=== PATIENT | male | born 1950 | race African-American/Black ===

== ENCOUNTER 2018-03-16 18:24 | Inpatient (IN) | payer OTHER ==
--- OUTSIDE RECORDS SUMMARY | 2018-03-16 18:26 | XMS REPORT | Clinical Summary ---
:1950 Author Organization [facility] Address [address] [place] [address] Care Team Providers Name Role Phone Asked, No Pcp Primary Care Provider Unavailable Allergies Active Allergy Reactions Severity Noted Date Comments Sulfamethoxazole-Trimethoprim 04/19/2017 Milk 04/19/2017 Shellfish Derived 04/19/2017 Crane 04/19/2017 Current Medications Prescription Sig. Disp. Refills Start Date End Date Status amLODIPine (NORVASC) 10 mg Take 10 mg by 1 01/13/2017 Active tablet mouth once daily. carvedilol (COREG) 12.5 MG Take 12.5 mg by 12 02/28/2017 Active tablet mouth 2 (two) times a day. finasteride (PROSCAR) 5 mg Take 5 mg by mouth 7 03/18/2017 Active tablet once daily. furosemide (LASIX) 40 mg Take 40 mg by 12 02/26/2017 Active tablet mouth once daily. lisinopril Take 30 mg by 0 03/10/2017 Active (PRINIVIL,ZESTRIL) 30 mg mouth once daily. tablet rosuvastatin (CRESTOR) 40 Take 40 mg by 3 01/30/2017 Active MG tablet mouth once daily. tamsulosin (FLOMAX) 0.4 mg Take 0.4 mg by 3 01/13/2017 Active capsule,extended release mouth once daily. 24hr Active Problems Problem Noted Date Essential hypertension 04/26/2017 History of CVA (cerebrovascular accident) 04/26/2017 S/P TAVR (transcatheter aortic valve replacement) 04/19/2017 Overview: with a 31-mm Medtronic CoreValve. Resolved Problems Problem Noted Date Resolved Date Aortic valve stenosis 04/19/2017 04/26/2017 Aortic valve disorder 04/19/2017 04/26/2017 Encounters Date Type Specialty Care Team Description 12/07/2017 Orders Only Cardiology Zahra Jimenez MA S/P TAVR (transcatheter aortic valve replacement) (Primary Dx); Aortic valve disorder 04/26/2017 Multidisciplinary Visit Cardiology Lior Gregg Aortic valve disorder (Primary Dx); MD Nargis S/P TAVR (transcatheter aortic valve replacement); Essential hypertension; History of CVA (cerebrovascular accident) 03/29/2017 Orders Only Cardiology Chika Wilson, Aortic valve disorder (Primary Dx); LORENZA S/P TAVR (transcatheter aortic valve replacement) after 03/15/2017 Family History Medical History Relation Name Comments Cancer Mother Hypertension Mother Relation Name Status Comments Father Mother Social History Tobacco Use Types Packs/Day Years Used Date Former Smoker 1 5 Comments: quit 40yrs ago Alcohol Use Drinks/Week oz/Week Comments No Sex Assigned at Date Recorded Not on file Last Filed Vital Signs Vital Sign Reading Time Taken Blood Pressure 179/59 04/26/2017 1:11 PM CDT Pulse 59 04/26/2017 1:11 PM CDT Temperature 36.3 C (97.4 F) 04/26/2017 1:11 PM CDT Respiratory Rate 16 04/26/2017 1:11 PM CDT Oxygen Saturation - - Inhaled Oxygen Concentration - - Weight 122 kg (270 lb) 04/26/2017 1:11 PM CDT Height 185.4 cm (6' 1") 04/26/2017 1:11 PM CDT Body Mass Index 35.62 04/26/2017 1:11 PM CDT Plan of Treatment Date Type Specialty Care Team Description 04/25/2018 Appointment Procedural Cardiology Lior Gregg MD [address] [facility] [address] [place] [address] [phone] 04/25/2018 Multidisciplinary Visit Cardiology Lior Gregg MD [address] [facility] [address] [place] [address] [id number] Health Maintenance Due Date Last Done Comments COLONOSCOPY 1999 SHINGRIX VACCINE (#1) 1999 ZOSTER VACCINE 2009 PNEUMOCOCCAL POLYSACCHARIDE VACCINE AGE 65 AND OVER 2014 PNEUMOCOCCAL-13 2014 INFLUENZA VACCINE 06/14/2018 Procedures Procedure Name Priority Date/Time Associated Comments Diagnosis ECHOCARDIOGRAM 2D Routine 04/26/2017 9:33 Aortic valve Results for this COMPLETE W MMODE AM CDT disorder procedure are in SPECTRAL COLOR DOPPLER S/P TAVR the results (41047) (transcatheter section. aortic valve replacement) after 03/15/2017 Results ECG 12 lead (04/26/2017 12:04 PM) Component Value Ref Range Ventricular rate 59 Atrial rate 59 MS interval 198 QRSD interval 122 QT interval 482 QTC interval 477 P axis 1 82 QRS axis 1 70 T wave axis -80 EKG impression Sinus bradycardia-Cannot rule out Inferior infarct , age undetermined-ST & T wave abnormality, consider lateral ischemia-Abnormal ECG-In automated comparison with ECG of 20-APR-2014 14:11,-Minimal criteria for Inferior infarct are now present-T wave inversion more evident in Inferior leads- Specimen Performing Laboratory [facility] [address] [place] [address] Echocardiogram complete w contrast and 3D if needed (04/26/2017 9:33 AM) Specimen Performing Laboratory [facility] [address] [place] [address] Narrative [facility] Echocardiography Report Pat.Name:NAGA CASTILLO Pat.ID:[id number] St.Date: 04/26/2017 Refer.MD:LIOR GREGG MD Exam Time: 9:05:00 AMStudy Type:Routine Echo Height:73inWeight: 270lb BSA: 2.45 m2 DOBAge:1950,66Y Sex: MALEBP:178/82 HR:64 bpm Sonogrphr: Cynthia Velez, RCS, RCCS, CCT Pat. Stat.:Outpatient[facility] TapeVol: [facility], Study Status:Final Echo Event ID:[id number] Order ID:[id number] Reason for Study:Valvular [id number]-jp-vcgt without evidence, no status change History / Clinical:Congestive Heart Failure, Diabetes, Hypertension, Valvular Heart Disease; Aortic Stenosis Procedures:2D Echo, Colorflow Doppler Race:-Georgian FINDINGS: LV: LV size is moderately enlarged. There is moderate eccentric LVhypertrophy. LV function is moderately depressed. EstimatedEF is 35-39%. RV: RV size is mildly enlarged. RV function is lower limits of normal. LA: LA volume is moderately to severely enlarged. RA: RA volume is mildly enlarged. AO: Aortic root diameter is normal. MADI: No pericardial effusion. AV: Transcatheter bioprosthetic aortic valve. Normal prosthetic valvevelocity and gradient.Unchanged compared to previous echoevaluation. MV: Moderate thickening of mitral leaflets. Mild mitral annular calcification.Mild mitral regurgitation. PV: No structural PV abnormalities noted. Mild pulmonic regurgitation. TV: No structural TV abnormalities noted. Forrest: LV relaxation is impaired. LV filling pressure is normal. Other:Insufficient TR jet to estimate PA systolic pressure. MEASUREMENTS: 2D Parasternal [place] LVOT 2.5 cmLVIDd6.3 cm Index2.6 cm/m IVSd 1.1 cmLVIDs5.3 cm Ao An2.5 cmLV%fs 15.5 % Ao Rtd 3.6 cmIndex 1.5 cm/m LVPWd0.9 cm LV Euzd907.4 g(122-174) LA Ds 3.9 cm LVM Fihrh838.5 g/m2RWT0.3 LA Sng Plane LA Area 29.7 cm2(8.8-23.4) LA Vol 108.5 ml Index44.3 ml/m LA LngAx 6.7 cm DOPPLER AV For Flow/DARY AV pkVel 225.8 cm/s (100-170) AV AC/ET 0.3 AV mnVel 146.2 cm/Quentin TVI 54.1 cm AV pkPG 20.4 mmHgAVpkAcRt 2696.1 cm/s2 AV Mean G 10.7 mmHgAV DeRt 610.6 cm/s2 AV AC128 msec (83-118) AV Area1.4 cm2(3-5) AV ET370 msec LVOT For Flow LVOT Area4.9 cm2 LVOT SV 77.4 ml LVOTpkVel 63.2 cm/sHR62.3 bpm LVOTpkPG 1.6 mmHgLVOT CO 4.8 l/min LVOTmnPG 1 mmHgLVOT CI2 l/m/m2 LVOT TVI15.8 cm MV E/A Ratio MV pkE67.1 cm/s (60-130) MV E/A 0.7 MV pkA92.2 cm/s WALL MOTION: RESTING WALL MOTION: Basal Anteroseptal, Basal Inferoseptal, Basal Inferior, Mid Anteroseptal, Mid Inferoseptal, Mid Inferior, Apical Inferior, Apical Lateral chinchilla are hypokinetic.Apical Septal, Apical chinchilla are mildly hypokinetic. Normal in all other chinchilla. Wall Index=1.5 Signed 04/27/2017 09:37 AM Brenna Chen M.D. Procedure Note Interface, Radiology Results In - 04/27/2017 9:37 AM CDT [facility] Echocardiography Report Pat.Name: NAGA CASTILLO Maite.ID: [id number] St.Date: 04/26/2017 Refer.MD: LIOR GREGG MD Exam Time: 9:05:00 AM Study Type:Routine Echo Height: 73in Weight: 270lb BSA: 2.45 m2 Age: 11 1950,66Y Sex: MALE BP: 178/82 HR: 64 bpm Sonogrphr: Cynthia Velez, RCS, RCCS, CCT Pat. Stat.:Outpatient Room: [address] Vol: [facility], Study Status:Final Echo Event ID:[id number] Order ID: [id number] Reason for Study:Valvular kiihynv-sd-zpua without evidence, no status change History / Clinical:Congestive Heart Failure, Diabetes, Hypertension, Valvular Heart Disease; Aortic Stenosis Procedures:2D Echo, Colorflow Doppler Race: -Georgian FINDINGS: LV: LV size is moderately enlarged. There is moderate eccentric LV hypertrophy. LV function is moderately depressed. Estimated EF is 35-39%. RV: RV size is mildly enlarged. RV function is lower limits of normal. LA: LA volume is moderately to severely enlarged. RA: RA volume is mildly enlarged. AO: Aortic root diameter is normal. MADI: No pericardial effusion. AV: Transcatheter bioprosthetic aortic valve. Normal prosthetic valve velocity and gradient.Unchanged compared to previous echo evaluation. MV: Moderate thickening of mitral leaflets. Mild mitral annular calcification. Mild mitral regurgitation. PV: No structural PV abnormalities noted. Mild pulmonic regurgitation. TV: No structural TV abnormalities noted. Forrest: LV relaxation is impaired. LV filling pressure is normal. Other: Insufficient TR jet to estimate PA systolic pressure. MEASUREMENTS: 2D Parasternal [place] LVOT 2.5 cm LVIDd 6.3 cm Index 2.6 cm/m IVSd 1.1 cm LVIDs 5.3 cm Ao An 2.5 cm LV%fs 15.5 % Ao Rtd 3.6 cm Index 1.5 cm/m LVPWd 0.9 cm LV Mass 356.4 g (122-174) LA Ds 3.9 cm LVM Index 145.5 g/m2 RWT 0.3 LA Sng Plane LA Area 29.7 cm2 (8.8-23.4) LA Vol 108.5 ml Index 44.3 ml/m LA LngAx 6.7 cm DOPPLER AV For Flow/DARY AV pkVel 225.8 cm/s (100-170) AV AC/ET 0.3 AV mnVel 146.2 cm/s AV TVI 54.1 cm AV pkPG 20.4 mmHg AVpkAcRt 2696.1 cm/s2 AV Mean G 10.7 mmHg AV DeRt 610.6 cm/s2 AV AC 128 msec (83-118) AV Area 1.4 cm2 (3-5) AV ET 370 msec LVOT For Flow LVOT Area 4.9 cm2 LVOT SV 77.4 ml LVOTpkVel 63.2 cm/s HR 62.3 bpm LVOTpkPG 1.6 mmHg LVOT CO 4.8 l/min LVOTmnPG 1 mmHg LVOT CI 2 l/m/m2 LVOT TVI 15.8 cm MV E/A Ratio MV pkE 67.1 cm/s (60-130) MV E/A 0.7 MV pkA 92.2 cm/s WALL MOTION: RESTING WALL MOTION: Basal Anteroseptal, Basal Inferoseptal, Basal Inferior, Mid Anteroseptal, Mid Inferoseptal, Mid Inferior, Apical Inferior, Apical Lateral chinchilla are hypokinetic. Apical Septal, Apical chinchilla are mildly hypokinetic. Normal in all other chinchilla. Wall Index=1.5 Signed 04/27/2017 09:37 AM Brenna hCen M.D. after 03/15/2017 Insurance Payer Benefit Plan / Group Subscriber ID Type Phone Address AETNA MEDICARE AETNA MEDICARE HMO/PPO [facility] xxxxxxxx O [phone] [facility] [address] [place] [phone]
[2018-03-16] MEDS ORDERED: NA CHLORIDE 0.9% 1,000 ML ONE (20:06)
--- NOTE | 2018-03-16 21:08 | ER ---
Nurse's Notes [facility] Name: Naga Castillo Age: 67 yrs Sex: Male : 1950 Arrival Date: 03/16/2018 Time: 18:27 Bed 7 Private MD: Diagnosis: Acute kidney failure Presentation: 03/16 18:29 Presenting complaint: Patient states: my blood today wasn't good; was advised to come hj here by Jake Suero, blood work done here; per lab look up- Na- 123; creatinine- 5.17; pt is asymptomatic;. Transition of care: patient was not received from another setting of care. Onset of symptoms was March 16, 2018. Initial Sepsis Screen: Does the patient meet any 2 criteria? No. Patient's initial sepsis screen is negative. Does the patient have a suspected source of infection? No. Patient's initial sepsis screen is negative. Care prior to arrival: None. 18:29 Method Of Arrival: Ambulatory 18:29 Acuity: RANDALL 3 hj Triage Assessment: 18:31 General: Appears in no apparent distress. uncomfortable, Behavior is calm, cooperative, hj appropriate for age. Pain: Denies pain. Historical: - Allergies: 18:31 Anesthesia; hj 18:31 Palisades; hj 18:31 Sulfa (Sulfonamide Antibiotics); hj - PMHx: 18:31 CVA; Diabetes - NIDDM; Hypertension; kidney disease; Myocardial infarction; hj - PSHx: 18:31 hip replacement; hj - Immunization history:: Adult Immunizations up to date. - Social history:: Smoking status: . Screenin:17 Abuse screen: Denies threats or abuse. Denies injuries from another. Nutritional mg2 screening: No deficits noted. Tuberculosis screening: No symptoms or risk factors identified. Fall Risk Ambulatory Aid- Crutches/Cane/Walker (15 pts). Assessment: 20:16 General: Appears in no apparent distress. comfortable, Behavior is calm, cooperative. mg2 Neuro: Level of Consciousness is awake, alert, obeys commands, Oriented to person, place, time. Cardiovascular: Capillary refill < 3 seconds Patient's skin is warm and dry. Respiratory: Airway is patent Respiratory effort is even, unlabored, Respiratory pattern is regular, symmetrical. GI: No signs and/or symptoms were reported involving the gastrointestinal system. : No signs and/or symptoms were reported regarding the genitourinary system. EENT: No signs and/or symptoms were reported regarding the EENT system. Derm: Skin is pink, warm \T\ dry. normal. Musculoskeletal: No signs and/or symptoms reported regarding the musculoskeletal system. 21:55 Reassessment: Patient and/or family updated on plan of care and expected duration. Pain ea level reassessed. Patient is alert, oriented x 3, equal unlabored respirations, skin warm/dry/pink. family at bedside. 22:22 Reassessment: 4th floor nurse called to give report but said she will call back because mg2 they have code blue ongoing. 23:08 Reassessment: Patient and/or family updated on plan of care and expected duration. Pain mg2 level reassessed. Patient is alert, oriented x 3, equal unlabored respirations, skin warm/dry/pink. report given to DEVORAH Ugalde. Vital Signs: 18:31 BP 184 / 69; Pulse 64; Resp 18; Temp 97.6(TE); Pulse Ox 100% on R/A; Weight 122.47 kg; hj Height 6 ft. 1 in. (185.42 cm); Pain 0/10; 20:00 BP 110 / 70; Pulse 80; Resp 18; Pulse Ox 98% on R/A; ea 21:00 BP 110 / 70; Pulse 83; Resp 18; Pulse Ox 97% on R/A; Pain 0/10; ea 22:56 BP 132 / 70; Pulse 79; Resp 18; Pulse Ox 98% on R/A; Pain 0/10; mg2 22:56 BP 155 / 70; Pulse 75; Resp 18; Pulse Ox 100% ; Pain 0/10; mg2 18:31 Body Mass Index 35.62 (122.47 kg, 185.42 cm) ED Course: 18:27 Patient arrived in ED. mr 18:31 Triage completed. hj 18:31 Arm band placed on right wrist. hj 19:25 Francisco Coleman RN is Primary Nurse. mg2 19:30 Memo Santos MD is Attending Physician. 20:16 Inserted saline lock: 20 gauge in right antecubital area, using aseptic technique. mg2 20:18 Patient has correct armband on for positive identification. Bed in low position. Call mg2 light in reach. Warm blanket given. 21:06 Maximus Perrin MD is Hospitalizing Provider. 22:15 No provider procedures requiring assistance completed. Patient admitted, IV remains in mg2 place. Administered Medications: 20:16 Drug: NS 0.9% 1000 ml Route: IV; Rate: 125 ml/hr; Site: right antecubital; mg2 22:23 Follow up: IV Status: Infusion continued upon transfer mg2 Outcome: 21:07 Decision to Hospitalize by Provider. 23:26 Admitted to Med/surg accompanied by tech, family with patient, via wheelchair, room ea 218, with chart, Report called to Receiving nurse. 23:26 Condition: stable 23:26 Instructed on the need for admit. 23:27 Patient left the ED. ea Signatures: Shantel Nichols mr James Zhang, RN RN Maria C Burrell RN RN Memo Juarez MD MD Francisco Coleman RN RN mg2 Corrections: (The following items were deleted from the chart) 18:34 18:31 Pulse 89bpm; Resp 18bpm; Pulse Ox 96%; Temp 97.6F Temporal; 122.47 kg; Height 6 hj ft. 1 in.; BMI: 35.6; Pain 0/10; hj 18:36 18:29 Presenting complaint: Patient states: my blood today wasn't good; was advised to come here by Jake Suero, blood work done here; hj 18:37 18:29 Presenting complaint: Patient states: my blood today wasn't good; was advised to come here by Jake Suero, blood work done here; per lab look up- Na- 123; creatinine- 5.17; hj
--- NOTE | 2018-03-16 21:08 | EDPHYS ---
Physician Documentation [facility] Name: Naga Castillo Age: 67 yrs Sex: Male : 1950 Arrival Date: 03/16/2018 Time: 18:27 Bed 7 Private MD: ED Physician Memo Santos HPI: 03/16 21:00 This 67 yrs old Black Male presents to ER via Ambulatory with complaints of Abnormal gs Lab Results. 21:00 Onset: The symptoms/episode began/occurred today. Associated signs and symptoms: gs Pertinent negatives: decreased urine output, dry skin, hair loss. Current symptoms: In the emergency department the patient's symptoms are unchanged from the initial presentation. The patient has experienced similar episodes in the past, several times. The patient has been recently seen by a physician: Dr. reyez. hx kidney disease told to come to ed for evaluation after abnormal blood test results. Historical: - Allergies: 18:31 Anesthesia; hj 18:31 Chandler; hj 18:31 Sulfa (Sulfonamide Antibiotics); hj - PMHx: 18:31 CVA; Diabetes - NIDDM; Hypertension; kidney disease; Myocardial infarction; hj - PSHx: 18:31 hip replacement; hj - Immunization history:: Adult Immunizations up to date. - Social history:: Smoking status: . ROS: 21:00 All other systems are negative. gs 21:00 All other systems are negative. Exam: 21:00 Head/Face: Normocephalic, atraumatic. Eyes: Pupils equal round and reactive to light, gs extra-ocular motions intact. Lids and lashes normal. Conjunctiva and sclera are non-icteric and not injected. Cornea within normal limits. Periorbital areas with no swelling, redness, or edema. ENT: Nares patent. No nasal discharge, no septal abnormalities noted. Tympanic membranes are normal and external auditory canals are clear. Oropharynx with no redness, swelling, or masses, exudates, or evidence of obstruction, uvula midline. Mucous membranes moist. Neck: Trachea midline, no thyromegaly or masses palpated, and no cervical lymphadenopathy. Supple, full range of motion without nuchal rigidity, or vertebral point tenderness. No Meningismus. Chest/axilla: Normal chest wall appearance and motion. Nontender with no deformity. No lesions are appreciated. Cardiovascular: Regular rate and rhythm with a normal S1 and S2. No gallops, murmurs, or rubs. Normal PMI, no JVD. No pulse deficits. Respiratory: Lungs have equal breath sounds bilaterally, clear to auscultation and percussion. No rales, rhonchi or wheezes noted. No increased work of breathing, no retractions or nasal flaring. Abdomen/GI: Soft, non-tender, with normal bowel sounds. No distension or tympany. No guarding or rebound. No evidence of tenderness throughout. Back: No spinal tenderness. No costovertebral tenderness. Full range of motion. Skin: Warm, dry with normal turgor. Normal color with no rashes, no lesions, and no evidence of cellulitis. MS/ Extremity: Pulses equal, no cyanosis. Neurovascular intact. Full, normal range of motion. Neuro: Awake and alert, GCS 15, oriented to person, place, time, and situation. Cranial nerves II-XII grossly intact. Motor strength 5/5 in all extremities. Sensory grossly intact. Cerebellar exam normal. Normal gait. 21:00 Constitutional: The patient appears alert, awake. 21:00 ECG was reviewed by the Attending Physician. Vital Signs: 18:31 BP 184 / 69; Pulse 64; Resp 18; Temp 97.6(TE); Pulse Ox 100% on R/A; Weight 122.47 kg; hj Height 6 ft. 1 in. (185.42 cm); Pain 0/10; 20:00 BP 110 / 70; Pulse 80; Resp 18; Pulse Ox 98% on R/A; ea 21:00 BP 110 / 70; Pulse 83; Resp 18; Pulse Ox 97% on R/A; Pain 0/10; ea 22:56 BP 132 / 70; Pulse 79; Resp 18; Pulse Ox 98% on R/A; Pain 0/10; mg2 22:56 BP 155 / 70; Pulse 75; Resp 18; Pulse Ox 100% ; Pain 0/10; mg2 18:31 Body Mass Index 35.62 (122.47 kg, 185.42 cm) MDM: 19:37 Patient medically screened. 21:00 Data reviewed: vital signs, nurses notes. Response to treatment: There is no appreciated change of the patient's symptoms at this time, and as a result, I will admit patient. Physician consultation: Siria Ackerman MD and will see patient in inpatient room, would like admission per Dr. Maximus Perrin MD. Admission orders: after a detailed discussion of the patient's condition and case, the admit orders are written by me. 03/16 19:47 Order name: EKG; Complete Time: 19:48 03/16 19:47 Order name: EKG - Nurse/Tech; Complete Time: 21:49 03/16 21:19 Order name: CONS Physician Consult EDNM 03/16 21:19 Order name: Carb Control (ADA) 1800 Fl[place]io EDNM EC:00 Rate is 68 beats/min. Rhythm is regular. MA interval is normal. QRS interval is gs prolonged. T waves are Inverted in leads I, aVL, V5, V6. Clinical impression: NSR w/ Non-specific ST/T Changes. Interpreted by me. Administered Medications: 20:16 Drug: NS 0.9% 1000 ml Route: IV; Rate: 125 ml/hr; Site: right antecubital; mg2 22:23 Follow up: IV Status: Infusion continued upon transfer mg2 Disposition: 03/16/18 21:07 Hospitalization ordered by Maximus Perrin for Inpatient Admission. Preliminary diagnosis is Acute kidney failure. - Bed requested for Telemetry/MedSurg (Inpatient). - Status is Inpatient Admission. ea - Condition is Stable. - Problem is an ongoing problem. - Symptoms are unchanged. UTI on Admission? No Signatures: Dispatcher [employer] [facility] [place] Beckham RN RN kl Joaquin, Henry, RN RN hj Antunez, Elena, RN RN ea Starr, Gregory, MD MD gs Gardose, Michele, RN RN mg2 Corrections: (The following items were deleted from the chart) 21:48 21:07 Hospitalization Ordered by Maximus Perrin MD for Inpatient Admission. Preliminary ginette diagnosis is Acute kidney failure. Bed requested for Telemetry/MedSurg (Inpatient). Status is Inpatient Admission. Condition is Stable. Problem is an ongoing problem. Symptoms are unchanged. UTI on Admission? No. gs 23:27 21:48 03/16/2018 21:07 Hospitalization Ordered by Maximus Perrin MD for Inpatient ea Admission. Preliminary diagnosis is Acute kidney failure. Bed requested for Telemetry/MedSurg (Inpatient). Status is Inpatient Admission. Condition is Stable. Problem is an ongoing problem. Symptoms are unchanged. UTI on Admission? No. kl
[2018-03-16] MEDS ORDERED: ACETAMINOPHEN 500 MG TAB PO PRN (21:14)
[2018-03-16] MEDS ORDERED: GLUCAGON 1 MG/VIAL IM PRN (21:17)
[2018-03-16] MEDS ORDERED: D50W 25 GM/50 ML SYRINGE IV PRN (21:17)
[2018-03-16] MEDS ORDERED: SODIUM BICARB 50 MEQ/50ML VIAL ONE (23:37)
[2018-03-16] MEDS ORDERED: D5W 1,000 ML IV ONE (23:38)
[2018-03-17] MEDS: D5W 1,000 ML with NA BICARB 8.4% 100 MEQ IV SCH ×6 (00:07→20:50)
[2018-03-17 02:24] VITALS: BMI 35.6
[2018-03-17 05:51] LABS: Potassium 5.5 mEq/L (3.6-5.0)
[2018-03-17 05:56] LABS: Albumin 3.2 g/dL (3.2-5.5); Phosphorus 5.7 mg/dL (2.5-4.3); Uric Acid 8.1 mg/dL (4.8-8.7)
[2018-03-17 06:01] LABS: CKMB Creatine Kinase MB 9.2 ng/ml (0.3-4.0)
[2018-03-17 06:38] LABS: Urine Appearance CLOUDY; Urine Bilirubin NEGATIVE (NEG); Urine Blood TRACE (NEG); Urine Color YELLOW; Urine Glucose 1+ (NEG); Urine Protein 3+ (NEG); Urine Specific Gravity 1.015 (1.005-1.030); Urine Urobilinogen 0.2 mg/dL (0.2-1.0); Urine pH 5.5 (5.0-7.0)
[2018-03-17 06:42] LABS: Urine Microscopic Reflex ORDER UMIC
--- NOTE | 2018-03-17 06:43 | EKG ---
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
[2018-03-17 07:13] LABS: Urine Bacteria >50 /HPF (NONE SEEN); Urine Culture Reflex Order REFLEXED
[2018-03-17] MEDS: INSULIN -REGULAR HUMAN 50 UNIT/0.5 ML ML SQ SCH ×4 (07:30→20:45)
--- NOTE | 2018-03-17 07:50 | RAD REPORT ---
EXAM DESCRIPTION: US - Renal Ultrasound-Complete - 03/16/2018 10:43 pm CLINICAL HISTORY: . Acute renal failure COMPARISON: March 2017 FINDINGS: The right kidney measures 11 centimeters with a mildly increased echotexture The left kidney measures 11 centimeters with a mildly increased echotexture. Hydronephrosis is not seen. IMPRESSION: Increased renal echotexture consistent with parenchymal disease
[2018-03-17] MEDS ORDERED: PNEUMOCOCCAL VACCINE 0.5 ML IMVAC ONE (08:00)
--- NOTE | 2018-03-17 08:25 | EKG ---
Test Date: 2018-03-16 Test Time: 20:51:46 Mixing Pan Tender: MEASUREMENT RESULTS: Intervals: Rate: 67 ID: [id number] QRSD: 112 QT: 440 QTc: 464 [place]: P: 67 ID: [id number] QRS: -15 T: 153 INTERPRETIVE STATEMENTS: Sinus rhythm with occasional premature ventricular complexes ST & T wave abnormality, consider inferolateral ischemia Prolonged QT Abnormal ECG Compared to ECG 03/16/2018 20:51:17 Ventricular premature complex(es) now present ST (T wave) deviation still present Possible ischemia still present Electronically Signed On 03-17-18 08:23:31 CDT by Finn Lewis
[2018-03-17] MEDS: CEFTRIAXONE/SWI 1gm 1 GM/10 ML SYR IV SCH (13:06)
[2018-03-17] MEDS ORDERED: CALCITROL 0.25 MCG CAP PO SCH (17:00)
[2018-03-17] MEDS: CARVEDILOL 25 MG TAB PO SCH (20:38)
[2018-03-17] MEDS: FERROUS SULFATE 325 MG TAB PO SCH (20:38)
--- NOTE | 2018-03-17 23:47 | HP ---
Date of Admission: 03/16/2018 History Of Present Illness: A 67-year-old male with history of multiple medical problems including trinity solorzano with chronic renal insufficiency has been following up with Nephrology for his renal insuffic iency which is chronic. However, chemistry panel ordered by Nephrology, his creatinine has showed th at it has worsened significantly to where his creatinine which usually runs between 2-3 have went up to 5.11 and he was advised to come to the emergency room to be admitted for acute renal failure. On top of chronic, the patient himself had no complaints, no shortness of breath, no chest pain. He den ied having been taking any other medications and he also denied taking any nonsteroidal anti-inflamma tory medicines and he voiced no other complaints. Review of Systems: Cardiovascular: No complaint. Genitourinary: No complaint. Skeletomuscular: No complaint. Gastrointestinal: No complaint. Pulmonary: No complaint. Neurological: No complaint. Past Medical History: Include as mentioned above: 1.Type 2 diabetes mellitus with chronic renal insufficiency. 2.Chronic disease status post myocardial infarction in the past. 3.History of CVA. 4.Hypertension. 5.Hyperlipidemia. 6.History of hip replacement surgery. Social History: No smoking, alcohol, or drug abuse history. Family History: Noncontributory. Medications: Include amlodipine 10 mg p.o. daily; calcitriol 0.25 mcg p.o. Tuesday, Tuesday, and ; calcium carbonate and Coreg 25 mg p.o. b.i.d.; vitamin D3; Procrit 4000 units subcutaneous; fredo elijah sulfate 65 mg p.o. b.i.d.; Proscar 5 mg p.o. daily; Lasix 40 mg p.o. daily; hydralazine 25 mg p. o. t.i.d.; NovoLog Pen 5 units b.i.d. subcutaneous; and Levemir 10 units subcutaneous b.i.d.; Prinivi l 20 mg p.o. daily; Crestor 40 mg p.o. daily; vitamin E supplement. Allergies: INCLUDING MILK, STRAWBERRY, SULFA AND SULFA DRUGS. Physical Examination: Vital Signs: Blood pressure 170/78, pulse 75, temperature 98. Heart: Regular rate and rhythm. Chest: Clear to auscultation. Abdomen: Soft, nontender. No perforation. Bowel sounds are normoactive. Extremities: No edema. No cyanosis. Peripheral pulses are felt. Neurological examination: Alert, oriented, nonfocal. Grossly intact. Imaging Data: EKG sinus rhythm with occasional premature ventricular complexes and ST-T wave abnorma lities and prolonged QT. Renal ultrasound showed parenchymal disease. Laboratory Data: Sodium 142, potassium 5.5, chloride 118, bicarb 17, BUN 84, creatinine 5.11, glucos e 307, calcium 7.9. Phosphorus 5.7. Urinalysis is trace 2+, white BC too numerous to count. Assessment/plan: Acute renal failure on top of chronic etiology at this time is unknown. We will co nsult Nephrology on that. We will resume patient's home medicines. We will put him on insulin slidi ng scale. We will put him on Rocephin for suspicion of UTI. We will continue the rest of his home m edications, pending nephrology recommendations from that standpoint. KIRILL/JACK Voice ID: [id number]
--- NOTE | 2018-03-18 04:36 | CON ---
Date of Consultation: 03/17/2018 Consulting Physician: Dr. Perrin. Reason For Consultation: Elevated BUN, creatinine, fluid management. History Of Present Illness: This is a 67-year-old gentleman with significant past medical history of hypertension, CVA, coronary artery disease, complicated with the IN, status post CABG, chronic kidne y disease, stage IV, follow up with Dr. Joseph secondary to hypertension, nephrosclerosis, nephrotic ra nge of proteinuria. The patient was in his regular state of health. On lab visit with Dr. Jake hernandez d to have elevation in his BUN and creatinine from his baseline with the presence of the hyperkalemia . For that reason, the patient was directed to the ER. The patient denied taking any nonsteroidal. No IV contrast. Creatinine found to be 5.1, baseline 3.3, GFR use to be around 23, dropped to 14. The patient denied any nonsteroidals. No IV contrast. No recent change in his medication. No perez e in his diet. We admitted the patient, placed the patient on IV hydration. The patient feeling sli ghtly better. Past Medical History: Include. 1.Hypertension. 2.CVA. 3.Coronary artery disease. 4.Status post IN. 5.Status post CABG. 6.Chronic kidney disease, stage IV. Laboratory Data: Baseline creatinine 3.6, GFR of 20, nephrotic range of proteinuria. Past Surgical History: 1.Valve replacement. 2.CABG. 3.Hip replacement. 4.Cholecystectomy. 5.Urethral stricture. 6.Colonoscopy. Allergies: NO KNOWN DRUG ALLERGIES. Home Medications: Include 1.Calcitriol. 2.Calcium carbonate. 3.Cholecalciferol. 4.Carvedilol 25 b.i.d. 5.Hydralazine 10 b.i.d. 6.Norvasc. 7.Fish oil. 8.Insulin. 9.Flomax. Medications: Current medications in the hospital include. 1.IV fluid of normal saline. 2.Norvasc 10. 3.Carvedilol 25 b.i.d. 4.Epogen. 5.Calcium carbonate. 6.Vitamin C. 7.Calcitriol. 8.Cholecalciferol. Review of Systems: Head and Neck: No red eye. No ear pain. GI: No nausea, no vomiting. : No polyuria. No dysuria. No hematuria. MATERIAL DAMAGE APPRAISER: Not applicable. Respiratory: No shortness of breath. Cardiovascular: No chest pain. Neuro: No weakness. No tremor. Musculoskeletal: No joint pain. Endocrine: No polydipsia. Skin: No rash. Physical Examination: General: When I saw the patient, the patient lying in bed, comfortable, not on any distress. Vital Signs: Blood pressure 178/70, pulse of 72, afebrile. Chest: Clear to auscultation. Heart: S1, S2. Regular. Abdomen: Soft, nontender. Extremity: Trace edema. Laboratory Data: Sodium 142, potassium 5.5, bicarb 17, chloride 118. BUN 84, creatinine 5.1, GFR 14 . Calcium 8.1, uric acid 8.1, calcium 7.9, phosphorus 5.7. Assessment And Plan: 1.Chronic kidney disease, stage IV, with acute kidney injury secondary to prerenal. I am going to c ontinue IV fluids. 2.Acidosis secondary to renal failure. The patient was started on bicarb drip, will follow up. I a m going to start the patient on oral bicarb. 3.Diabetes, as by primary. 4.Hyperkalemia, secondary to renal failure. Start the patient on bicarb. The patient already receiv ed albuterol and D50. We will follow up the lab tomorrow. 5.Cerebrovascular accident. Continue supportive treatment. 6.Nephrotic range of proteinuria, stable. 7.Acute renal failure on advanced chronic kidney disease. No uremic symptoms. No major acidosis. I do not see any need for urgency for the dialysis. We will follow up the lab tomorrow. 8.Hypertension, uncontrolled. I am going to go ahead and add hydralazine, and we will follow up the patient. Thank you, Dr. Perrin, for allowing us to participate in the care of your patient. LORENZA/JACK Voice ID: [id number] Report ID: [id number]
[2018-03-18 06:08] LABS: Absolute Lymphocytes (CBC) 1.3 K/uL (0.7-4.9); Absolute Monocytes 0.5 K/uL (0.1-1.3); Absolute Neutrophil 3.4 K/uL (1.8-8.0); Basophils % 0.8 % (0-1.3); Hematocrit 26.4 % (39.6-49.0); Lymphocytes % 23.2 % (15.3-44.8); MCH 27.4 pg (27.0-35.0); MCV 86.9 fL (80-100); MPV 8.1 fL (7.6-11.3); RBC Red Blood Cell Count 3.04 M/uL (4.33-5.43)
[2018-03-18] MEDS: D5W 1,000 ML with NA BICARB 8.4% 100 MEQ IV SCH ×4 (06:10→17:59)
[2018-03-18 06:39] LABS: Albumin 3.1 g/dL (3.2-5.5); Magnesium 1.9 mg/dL (1.8-2.5); Potassium 5.1 mEq/L (3.6-5.0)
[2018-03-18] MEDS: INSULIN -REGULAR HUMAN 50 UNIT/0.5 ML ML SQ SCH ×4 (07:30→20:55)
[2018-03-18] MEDS: SODIUM BICARB 325 MG TAB PO SCH ×2 (08:58→20:54)
[2018-03-18] MEDS: CARVEDILOL 25 MG TAB PO SCH ×2 (08:58→20:54)
[2018-03-18] MEDS: HYDRALAZINE HCL 25 MG TABLET PO SCH ×3 (08:58→20:54)
[2018-03-18] MEDS: CEFTRIAXONE/SWI 1gm 1 GM/10 ML SYR IV SCH (08:58)
[2018-03-18] MEDS: CALCIUM CARBONATE CHEW 500MG TAB PO SCH (08:58)
[2018-03-18] MEDS: VITAMIN D 1000 UNIT TAB PO SCH (08:58)
[2018-03-18] MEDS: FERROUS SULFATE 325 MG TAB PO SCH ×2 (08:58→20:53)
[2018-03-18] MEDS: AMLODIPINE 10 MG TAB PO SCH (08:59)
[2018-03-18] MEDS: ASCORBIC ACID 500 MG TABLET PO SCH (08:59)
[2018-03-18] MEDS ORDERED: FUROSEMIDE 40 MG TABLET PO SCH (09:00)
[2018-03-18] MEDS ORDERED: CEFTRIAXONE 1 GM/NS 50 ML 1 GM/50 ML BAG IV SCH (09:00)
--- NOTE | 2018-03-18 15:30 | PN ---
Subjective: The patient has no complaints. Said he is feeling well. Objective: Vital Signs: Blood pressure 185/85, pulse 66, temperature 99. Heart: Regular rate and rhythm. Chest: Clear to auscultation. Abdomen: Soft, benign. Extremities: No edema. Neurological: Alert, oriented. Grossly intact. Laboratory Data: Hemoglobin 8.3, hematocrit 26.4, potassium 5.1, BUN 74, creatinine 4.16. Blood sug ar, fingersticks noted. Assessment And Plan: 1.Acute renal failure on top of chronic renal failure due to volume depletion. IV fluids gradually being supplied, improving kidney function. 2.Hyperkalemia, improving with hydration and bicarb supplement that Nephrology put him on. 3.Anemia of chronic illness. The patient is clinically stable. We will monitor that too. 4.Type 2 diabetes. The patient will keep him on his home medications and monitor his blood sugar, p ut him on sliding scale. 5.Hypertension, uncontrolled. I think Nephrology have added his hydralazine, expected to start bein g better controlled. We will monitor. Look orders for details. MFS/MODL Voice ID: [id number] Report ID: [id number]
--- NOTE | 2018-03-19 00:39 | PN ---
Date of Progress Note: 03/18/2018 Subjective: The patient is feeling better. No nausea. No vomiting. Still has marginal hyperkalemi a. Physical Examination: Vital Signs: Blood pressure 199/85, pulse of 69. Afebrile. Chest: Clear to auscultation. Heart: S1, S2 regular. Abdomen: Soft, nontender. Extremities: Trace edema. Laboratory Data: WBC 5.8, H and H 8.3/26.4, platelet 157. Sodium 141, potassium 5.1, bicarb 20. BU N 74, creatinine 4.1, glucose 220. Calcium 7.9, phosphorus 5. Current Medications: The patient on include, 1.Epogen. 2.Ceftriaxone. 3.Ferrous sulfate. 4.Calcium carbonate. 5.Amlodipine 10. 6.Carvedilol 25. 7.Hydralazine 25 t.i.d. 8.Sodium bicarbonate. 9.IV fluid D5 with bicarbonate. 10.Insulin. 11.Vitamin . 12.Calcitriol. Assessment And Plan: 1.Chronic kidney disease, advanced stage 3 with acute kidney injury secondary to prerenal plateau, c urrently nonoliguric. No hyperkalemia. I do not see any need for renal replacement. We need to enc ourage the patient to follow up with us closely. 2.Hypertension, uncontrolled. We will add hydralazine and we will follow up. 3.Acidosis. Continue bicarbonate. 4.Secondary hyperparathyroid. Continue calcitriol and binder. 5.Anemia. Continue Epogen. 6.The patient cleared from the renal standpoint for discharge planning. TRIP Voice ID: [id number] Report ID: [id number]
[2018-03-19 01:06] VITALS: O2SAT 99
[2018-03-19 06:01] LABS: Absolute Lymphocytes (CBC) 1.1 K/uL (0.7-4.9); Absolute Monocytes 0.4 K/uL (0.1-1.3); Absolute Neutrophil 3.4 K/uL (1.8-8.0); Basophils % 0.7 % (0-1.3); Eosinophils % 7.3 % (0-4.4); Hematocrit 26.1 % (39.6-49.0); Lymphocytes % 20.2 % (15.3-44.8); MCH 28.1 pg (27.0-35.0); MCV 86.1 fL (80-100); Monocytes % 8.3 % (3.3-12.3); RBC Red Blood Cell Count 3.03 M/uL (4.33-5.43)
[2018-03-19 06:04] LABS: Albumin 3.1 g/dL (3.2-5.5); Magnesium 1.7 mg/dL (1.8-2.5); Phosphorus 5.1 mg/dL (2.5-4.3); Potassium 5.2 mEq/L (3.6-5.0)
[2018-03-19 06:23] VITALS: TEMP 98.4
[2018-03-19] MEDS: INSULIN -REGULAR HUMAN 50 UNIT/0.5 ML ML SQ SCH (07:30)
[2018-03-19] MEDS: CEFTRIAXONE/SWI 1gm 1 GM/10 ML SYR IV SCH (08:50)
[2018-03-19] MEDS: FERROUS SULFATE 325 MG TAB PO SCH (08:51)
[2018-03-19] MEDS: HYDRALAZINE HCL 25 MG TABLET PO SCH (08:51)
[2018-03-19] MEDS: ASCORBIC ACID 500 MG TABLET PO SCH (08:51)
[2018-03-19] MEDS: CARVEDILOL 25 MG TAB PO SCH (08:51)
[2018-03-19] MEDS: VITAMIN D 1000 UNIT TAB PO SCH (08:51)
[2018-03-19] MEDS: SODIUM BICARB 325 MG TAB PO SCH (08:51)
[2018-03-19] MEDS: AMLODIPINE 10 MG TAB PO SCH (08:52)
[2018-03-19] MEDS: CALCIUM CARBONATE CHEW 500MG TAB PO SCH (08:52)
[2018-03-19 08:53] VITALS: BP 179/83
[2018-03-22] MEDS ORDERED: EPOETIN ALFA 4,000 UNIT/ML VIAL SQ SCH (09:00)
--- NOTE | 2018-06-16 15:31 | DS ---
Date of Discharge: 03/19/2018 History Of Present Illness: A 67-year-old male with multiple medical problems including chronic rain l insufficiency, was following up with Nephrology for that. He was admitted to the hospital after pr esenting to the emergency room as Nephrology have asked him to go to the emergency room to be evaluat ed because he was found to have acute kidney failure on top of chronic. The patient was found also t o have urinary tract infection and cystitis. Past Medical History: As per admit note. Social History: As per admit note. Medications: As per admit note. Allergies: PER ADMIT NOTE. Physical Examination: As per admit note. Diagnostic Workup: As per admit note. Hospital Course: The patient was admitted to the hospital. Consulted Nephrology for his renal failu re. We put him on IV Rocephin for cystitis and continued the rest of his home medications for his ch ronic medical illnesses. The patient was seen by Dr. Sheppard for his kidney and renal problems. It was thought that the patient to be volume depleted, so we kept him on IV fluids and kept managing hi s electrolytes, his diabetes, and his blood pressure. We added hydralazine for control of his blood pressure. The patient was not in need for dialysis. Nephrology thought that the patient after hydra tion and some improvement in his kidney functions that stable enough to be discharged to follow up wi th them. As the patient is stable enough to be discharged, we went ahead and discharged him to continue his home medications and to follow up with Nephrology. Look discharge orders for details. MFS/MODL Voice ID: [id number] Report ID: [id number]
== END 2018-03-19 09:50 | disposition home or self-care (01) | DRG 684 ==
LOC: ER 18:24 → ERHOLD 21:23 → 2ND 21:50
PROVIDERS: ADMIT Internal Medicine; ATTEND Internal Medicine
DX: N17.9 Acute kidney failure, unspecified (principal); I12.9 Hypertensive chronic kidney disease with stage 1 through stage 4 chronic kidney disease, or unspecified chronic kidney disease; N18.4 Chronic kidney disease, stage 4 (severe); N25.81 Secondary hyperparathyroidism of renal origin; E78.5 Hyperlipidemia, unspecified; I25.10 Atherosclerotic heart disease of native coronary artery without angina pectoris; E11.22 Type 2 diabetes mellitus with diabetic chronic kidney disease; D63.1 Anemia in chronic kidney disease; E87.5 Hyperkalemia; Z86.73 Personal history of transient ischemic attack (TIA), and cerebral infarction without residual deficits; Z95.1 Presence of aortocoronary bypass graft; Z88.2 Allergy status to sulfonamides; Z95.2 Presence of prosthetic heart valve
CPT/HCPCS: 36415; 76770; 80048; 80069; 81003; 81015; 82040; 82306; 82330; 82553; 82728; 82962; 83540; 83735; 83970; 84100; 84466; 84550; 85014; 85018; 85025; 85044; 87077; 87086; 87088; 87186; 93005; 96360; 96361; 96372; 99285; J0696; J0885; J7030

== ENCOUNTER 2018-12-13 23:49 | Observation (INO) | payer OTHER ==
--- OUTSIDE RECORDS SUMMARY | 2018-12-13 23:51 | XMS REPORT | Clinical Summary ---
:1950 Author Organization [facility] Address [address] [place] [address] Care Team Providers Name Role Phone Asked, No Pcp Primary Care Provider Unavailable Allergies Active Allergy Reactions Severity Noted Date Comments Sulfamethoxazole-Trimethoprim 04/19/2017 Milk 04/19/2017 Shellfish Derived 04/19/2017 Wendel 04/19/2017 Medications Medication Sig Dispensed Refills Start Date End Date Status amLODIPine (NORVASC) 10 Take 10 mg by 1 01/13/2017 Active mg tablet mouth once daily. carvedilol (COREG) 12.5 Take 12.5 mg by 12 02/28/2017 Active MG tablet mouth 2 (two) times a day. finasteride (PROSCAR) 5 Take 5 mg by 7 03/18/2017 Active mg tablet mouth once daily. furosemide (LASIX) 40 mg Take 40 mg by 12 02/26/2017 Active tablet mouth once daily. lisinopril Take 30 mg by 0 03/10/2017 Active (PRINIVIL,ZESTRIL) 30 mg mouth once tablet daily. rosuvastatin (CRESTOR) Take 40 mg by 3 01/30/2017 Active 40 MG tablet mouth once daily. tamsulosin (FLOMAX) 0.4 Take 0.4 mg by 3 01/13/2017 Active mg capsule,extended mouth once release 24hr daily. 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 Family History Medical History Relation Name Comments Cancer Mother Hypertension Mother Relation Name Status Comments Father Mother Social History Tobacco Use Types Packs/Day Years Used Date Former Smoker 1 5 Comments: quit 40yrs ago Alcohol Use Drinks/Week oz/Week Comments No Sex Assigned at Date Recorded Not on file Job Start Date Occupation Industry Not on file Not on file Not on file Travel History Travel Start Travel End No recent travel history available. Last Filed Vital Signs Not on file Plan of Treatment Date Type Specialty Care Team Description 04/26/2019 Multidisciplinary Visit Cardiology Stanislaw Arora MD [address] [facility] [address] [place] [address] Health Maintenance Due Date Last Done Comments COLON CANCER SCREENING 1999 SHINGLES VACCINES (1 of 2) 1999 PNEUMOCOCCAL POLYSACCHARIDE VACCINE AGE 65 AND OVER 2014 PNEUMOCOCCAL-13 2014 INFLUENZA VACCINE 06/14/2018 Results Not on fileafter 12/12/2017 Insurance Payer Benefit Plan / Group Subscriber ID Type Phone Address A[employer]NA MEDICARE AETNA MEDICARE HMO/PPO [facility] xxxxxxxx HMO Advance Directives Patient has advance care planning documents on file. For more information, please contact:Richard Lundberg[address] [place] [address]
--- OUTSIDE RECORDS SUMMARY | 2018-12-13 23:52 | XMS REPORT | Continuity of Care Document ---
:1950 Author Organization Interface Problems Problem Status Onset Classification Date Comments Source Date Reported RECTAL POLYP Active 06/09/[address] RECTAL POLYP-D12.8 Active 05/24/20 [place] [address] [place] Prostate stricture Resolved 12/15/19 Problem 07/10/2016 [place] Stroke Resolved 10/09/20 Problem 07/10/2016 [place],[facility] Hip replacement Resolved 11/05/20 Problem 07/10/2016 [place],[facility] Gallbladder & bile Resolved 05/02/20 Problem 07/10/2016 [facility] duct stone with [place], obstruction [facility] Triple bypass of Resolved 04/14/20 Problem 07/10/2016 [place] pancreas 04 [place],[facility] CO - Myocardial Resolved 04/13/20 Problem 07/10/2016 [place] infarction 04 [place],[facility] CHF - Congestive Active Problem 07/10/2016 [facility] heart failure [place],[facility] CVA - Active Problem 07/10/2016 [facility] Cerebrovascular [facility], accident [facility] DM - Diabetes Active Problem 07/10/2016 [facility] mellitus [facility] Dysarthria Active Problem 07/10/2016 [place] Enlarged prostate Active Problem 07/10/2016 [place] HTN - Hypertension Active Problem 07/10/2016 [place],[facility] Rectal polyp Active Problem 07/10/2016 [facility] Right sided Active Problem 07/10/2016 [facility] weakness [facility] Medications Medication Details Route Status Patient Ordering Order Source Instructions Provider Date Tylenol 650 mg, 2 tab, Inactive 07/07/ [facility] Route: PO, Drug 2015 Hospital form: TAB, Q6H, Dosing Weight 95.455, kg, PRN Pain Score 1-3, Start date: 07/07/16 12:10:00 CDT, Duration: 30 day, Stop date: 08/06/16 12:09:00 CDTNotes: Do not exceed 4 gm/day. (Same as: Tylenol) glycopyrrolate Route: IV, Drug Inactive [place] (ANES) form: INJ, ONCE, 2015 Hospital Stop date: 07/07/16 10:28:00 CDT neostigmine Route: IV, Drug Inactive [place] (ANES) form: INJ, ONCE, 2015 Hospital Stop date: 07/07/16 10:28:00 CDT ondansetron Route: IV, Drug Inactive [place] (ANES) form: INJ, ONCE, 2015 Hospital Stop date: 07/07/16 10:28:00 CDT morphine Sulfate Route: IV, Drug Inactive [place] (ANES) form: INJ, ONCE, 2015 Hospital Stop date: 07/07/16 9:56:00 CDT acetaminophen Route: IV, Drug Inactive [place] (ANES) (ANES) form: INJ, Start 2015 Hospital date: 07/07/16 9:50:00 CDT, Stop date: 07/07/16 10:50:00 CDT midazolam (ANES) Route: IV, Drug Inactive [place] form: SOLN, 2015 Hospital ONCE, Stop date: 07/07/16 9:36:00 CDT cefOXitin (ANES) Route: IV, Drug Inactive [place] form: INJ, ONCE, 2015 Hospital Stop date: 07/07/16 9:36:00 CDT lidocaine (ANES) Route: IV, Drug Inactive [place] form: INJ, ONCE, 2015 Hospital Stop date: 07/07/16 9:36:00 CDT propofol (ANES) Route: IV, Drug Inactive [place] form: INJ, ONCE, 2015 Hospital Stop date: 07/07/16 9:36:00 CDT fentaNYL (ANES) Route: IV, Drug Inactive [place] form: INJ, ONCE, 2015 Hospital Stop date: 07/07/16 9:36:00 CDT rocuronium (ANES) Route: IV, Drug Inactive [place] form: INJ, ONCE, 2015 Hospital Stop date: 07/07/16 9:36:00 CDT LR 1000 mL INJ Route: IV, Total Inactive [place] (ANES) Volume: 1,000, 2016 Hospital Start date: 07/07/16 8:44:00 CDT, Stop date: 07/07/16 9:44:00 CDT Diphenhydramine 12.5 mg, 0.25 Inactive [place] mL, Route: IVP, 2015 Hospital Drug form: INJ, Q6H, Dosing Weight 95.455, kg, PRN Itching, Start date: 07/07/16 8:18:00 CDT, Duration: 30 day, Stop date: 08/06/16 8:17:00 CDTNotes: (Same as: Benadryl) Meperidine 12.5 mg, 0.5 mL, Inactive [place] Route: IVP, Drug 2015 Hospital form: INJ, Q30Min, Dosing Weight 95.455, kg, PRN Other -See Comment, For shivering, Start date: 07/07/16 8:18:00 CDT, Duration: 2 doses or times, Stop date: Limited # of timesNotes: (Same as: Demerol) "Use Precaution in Elderly, Seizure disorders, and Renal impairment" Ondansetron 4 mg, 2 mL, Inactive [place] Route: IVP, Drug 2015 Hospital form: INJ, ONCE, Dosing Weight 95.455, kg, PRN Nausea & Vomiting, Start date: 07/07/16 8:18:00 CDTNotes: (Same as: Zofran) MEDICATION WASTE Product Size: 4 mg Product Wasted: 0 mg Hydromorphone 0.5 mg, 0.5 mL, Inactive [place] Route: IVP, Drug 2015 Hospital form: INJ, Q5Min, Dosing Weight 95.455, kg, PRN Pain Score 7-10, Start date: 07/07/16 8:18:00 CDT, Duration: 4 doses or times, Stop date: Limited # of timesNotes: Same as: Dilaudid Flumazenil 0.2 mg, 2 mL, Inactive [place] Route: IVP, Drug 2015 Hospital form: INJ, PRN, Dosing Weight 95.455, kg, PRN Benzodiazepine Reversal, Initial dose, Start date: 07/07/16 8:18:00 CDT, Duration: 30 day, Stop date: 08/06/16 8:17:00 CDTNotes: (Same as: Romazicon) Naloxone 0.4 mg, 1 mL, Inactive [place] Route: IVP, Drug 2015 Hospital form: INJ, Q2MIN, Dosing Weight 95.455, kg, PRN Narcotic Reversal, Start date: 07/07/16 8:18:00 CDT, Duration: 8 doses or times, Stop date: Limited # of timesNotes: Same as Narcan Morphine 2 mg, 1 mL, Inactive [place] Route: IVP, Drug 2015 Hospital form: INJ, Q5Min, Dosing Weight 95.455, kg, PRN Pain Score 4-6, Start date: 07/07/16 8:18:00 CDT, Duration: 5 doses or times, Stop date: Limited # of timesNotes: (Same as:MORPhine Sulfate) Calcium Chloride 1,000 mL, Rate: Inactive [place] 0.0014 MEQ/ML / 125 ml/hr, 2016 Hospital Potassium Infuse over: 8 Chloride 0.004 hr, Route: IV, MEQ/ML / Sodium Dosing Weight Chloride 0.103 95.455 kg, Total MEQ/ML / Sodium Volume: 1,000, Lactate 0.028 Start date: MEQ/ML Injectable 07/07/16 8:18:00 Solution CDT, Duration: 30 day, Stop date: 08/06/16 8:17:00 CDT Lidocaine 0.1 mL, Route: Inactive [place] INTRADERM, Drug 2015 Hospital Form: SOLN, Dosing Weight 95.455, kg, ONCALL, Start date: 07/07/16 7:58:00 CDT, Duration: 1 doses or timesNotes: Ingredients: 2 ml lidocaine 1% inj , 0.2ml sodium bicarbonate 8.4% inj total volume=2.2ml Refrigerate: 14 days Room temp: 7 days Calcium Chloride 1,000 mL, Rate: Inactive [place] 0.0014 MEQ/ML / 25 ml/hr, Infuse 2016 Hospital Potassium over: 40 hr, Chloride 0.004 Route: IV, MEQ/ML / Sodium Dosing Weight Chloride 0.103 95.455 kg, Total MEQ/ML / Sodium Volume: 1,000, Lactate 0.028 Start date: MEQ/ML Injectable 07/07/16 7:57:00 Solution CDT, Duration: 30 day, Stop date: 08/06/16 7:56:00 CDT Mefoxin 2 gm, 50 mL, Inactive [place] Route: IVPB, 2015 Hospital Drug form: INJ, ONCALL, Start date: 07/07/16 6:00:00 CDT, Duration: 1 doses or times, Stop date: 07/07/16 18:00:00 CDTNotes: (Same As: Mefoxin) Sodium Chloride 25 mL, Route: No Longer [place] 0.9% IV IV, Start date: Active 2015 Hospital 07/06/16 14:11:00 CDT, Duration: 30 day, Stop date: 08/05/16 14:10:00 CDT, PRN Line Flush BD Normal Saline 10 mL, Route: No Longer [place] Flush IV, Drug Form: Active 2015 Hospital INJ, PRN, PRN Line Flush, Start date: 07/06/16 14:11:00 CDT, Duration: 30 day, Stop date: 08/05/16 14:10:00 CDTNotes: (Same as: BD Posiflush) lisinopril 20 mg 20 mg=1 tab, PO, Active [place] oral tablet Daily, 0 2015 Hospital Refill(s) Cefoxitin 2 gm, Route: Inactive [place] IVPB, ONCALL, 2016 [facility] Dosing Weight 95.909, kg, Start date: 05/26/16 8:00:00 CDTNotes: (Same As: Mefoxin) MEDICATION WASTE Product Size: 2000 mg Product Wasted: ___ mg Co-Q10 PO, 0 Refill(s) Active [place] Fish Oil PO, 0 Refill(s) Active [place] NovoLog SUB-Q, Active [place] TID-Before [place] Meals, 0 Refill(s) Levemir SUB-Q, 0 Active [place] Refill(s) [place] ferrous sulfate PO, 0 Refill(s) Active [place] Amlodipine PO, Daily, 0 Active [place] Refill(s) [place] Furosemide Daily, 0 Active [place] Refill(s) [place] Lisinopril PO, Daily, 0 Active [place] Refill(s) [place] Allergies, Adverse Reactions, Alerts Substance Category Reaction Severity Reaction Status Date Comments Source type Reported Food Lactose Assertion Propensity Active [facility] Intolerance to adverse Hospital (Restricts reactions Milk/Milk to Products) substance Food Assertion Drug Active [facility] Strawberries allergy [facility] sulfa drugs Assertion Drug Active [facility] Immunizations Immunization Date Given Site Status Last Updated Comments Source Results Order Name Results Value Reference Date Interpretation Comments Source Range BLOOD BANK Antibody Negative [facility] RESULTS Scrn 2016 [facility] (07/07/16 9:35 AM) BLOOD BANK ABO/Rh O POS [facility] RESULTS 2016 [facility] CHEM PANEL Glucose Lvl 76 mg/dL 70 - 99 [facility] 2015 [facility] ELECTROLYTES Potassium 5.4 meq/L 3.5 - 5.1 [facility] Lvl 2016 [facility] ELECTROLYTES Sodium Lvl 142 meq/L 135 - 145 [facility] 2016 [facility] HEMATOLOGY Hgb 9.4 g/dL 14.0 - 18.0 [facility] 2016 [facility] HEMATOLOGY Hct 29.5 % 42.0 - 54.0 [facility] 2016 [facility] Vital Signs Vital Sign Value Date Comments Source Respitory Rate 16 07/07/2016 [facility] Heart Rate 59 07/07/2016 [facility] Systolic (mm Hg) 157 07/07/2016 [facility] Diastolic (mm Hg) 71 07/07/2016 [facility] Heart Rate 58 07/07/2016 [facility] Respitory Rate 18 07/07/2016 [facility] Systolic (mm Hg) 158 07/07/2016 [facility] Diastolic (mm Hg) 82 07/07/2016 [facility] Systolic (mm Hg) 140 07/07/2016 [facility] Diastolic (mm Hg) 69 07/07/2016 [facility] Respitory Rate 12 07/07/2016 [facility] Heart Rate 75 07/07/2016 [facility] Height 185.42 cm 07/06/2016 [facility] Weight 95.455 07/06/2016 [facility] BMI Calculated 27.76 07/06/2016 [facility] Height 185.42 cm 05/24/2016 [facility] Weight 95.909 05/24/2016 [place] BMI Calculated 27.9 05/24/2016 [place] Encounters Location Location Encounter Encounter Reason Attending ADM DC Status Source Details Type Number For Provider Date Date Visit [facility] [id number] [place] 05/26 05/26 [facility]2015 [facility] [place] [facility] Surgery [id number] [place] 07/07 07/07 [facility] /2015 [facility] Procedures Procedure Code Date Perfomer Comments Source Echocardiogram [id number] 01/22/2014 [place] Echocardiogram [id number] 01/22/2014 [facility] CT angiography [id number] 01/21/2014 [facility] Pulmonary function [id number] 01/21/2014 [facility] test CT angiography [id number] 01/21/2014 [facility] Pulmonary function [id number] 01/21/2014 [facility] [id number] [facility] Gallbladder [id number] [facility] operation Hip replacement [id number] [facility] Bypass [id number] [facility] Cataract extraction, [id number] bilateral [facility] insertion of Hospital intraocular lens and trabeculectomy<sup>1 </sup> Gallbladder [id number] [facility] Hip [id number] bilateral [place] replacement<sup>2</s Hospital up>
[2018-12-14 00:33] LABS: Absolute Lymphocytes (CBC) 0.7 K/uL (0.7-4.9); Absolute Monocytes 0.3 K/uL (0.1-1.3); Absolute Neutrophil 3.9 K/uL (1.8-8.0); Basophils % 0.7 % (0-1.3); Eosinophils % 3.2 % (0-4.4); Hematocrit 28.4 % (39.6-49.0); Lymphocytes % 13.4 % (15.3-44.8); MPV 8.2 fL (7.6-11.3); Monocytes % 5.7 % (3.3-12.3); RBC Red Blood Cell Count 3.22 M/uL (4.33-5.43)
[2018-12-14 00:38] LABS: Protime INR 1.07
[2018-12-14 00:54] LABS: Albumin 3.4 g/dL (3.4-5.0); Bilirubin Direct 0.1 mg/dL (0-0.2); Bilirubin Total 0.5 mg/dL (0.2-1.0); Magnesium 2.1 mg/dL (1.8-2.4); Potassium 4.6 mmol/L (3.5-5.1); Protein, Total 6.6 g/dL (6.4-8.2); Troponin (Emerg Dept Use Only) 0.05 ng/mL (0.0-0.045)
--- NOTE | 2018-12-14 01:06 | ER ---
Nurse's Notes [facility] Name: Naga Castillo Age: 68 yrs Sex: Male : 1950 Arrival Date: 12/13/2018 Time: 23:50 Bed 6 Private MD: Maximus Perrin F Diagnosis: Dehydration;Headache;Dizziness and giddiness;Acidosis Presentation: 12/14 00:09 Presenting complaint: Patient states: Dizziness, headache since taking his medications lp1 this morning; States no head trauma, but feels lightheaded; Vomited x 3 today; decreased appetite. Transition of care: patient was not received from another setting of care. Onset of symptoms was December 13, 2018. Risk Assessment: Do you want to hurt yourself or someone else? Patient reports no desire to harm self or others. Initial Sepsis Screen: Does the patient meet any 2 criteria? No. Patient's initial sepsis screen is negative. Does the patient have a suspected source of infection? No. Patient's initial sepsis screen is negative. Care prior to arrival: None. 00:09 Method Of Arrival: Wheelchair lp1 00:09 Acuity: RANDALL 3 lp1 Historical: - Allergies: 00:18 Anesthesia; lp1 00:18 Craig; lp1 00:18 Sulfa (Sulfonamide Antibiotics); lp1 - Home Meds: 00:18 hydralazine 25 mg Oral tab 3 tab three times a day [Active]; calcitriol 0.25 mcg oral lp1 cap 2 caps once daily [Active]; carvedilol 25 mg oral tab 1 tab 2 times per day [Active]; finasteride 5 mg oral tab 1 tab once daily [Active]; amlodipine 10 mg tab 1 tab once daily [Active]; rosuvastatin 40 mg oral tab 1 tab once daily [Active]; furosemide 40 mg Oral tab 1 tab once daily [Active]; - PMHx: 00:18 CVA; Diabetes - NIDDM; Hypertension; kidney disease; Myocardial infarction; lp1 - PSHx: 00:18 triple bypass; bilateral hip surgery; Fistula- L arm; lp1 - Immunization history:: Adult Immunizations up to date, Flu vaccine is not up to date. - Family history:: not pertinent. - Social history:: Smoking status: Patient/guardian denies using tobacco. - Ebola Screening: : No symptoms or risks identified at this time. - Hospitalizations: : No recent hospitalization is reported. Screenin:21 Abuse screen: Denies threats or abuse. Denies injuries from another. Nutritional lp1 screening: No deficits noted. Tuberculosis screening: No symptoms or risk factors identified. 00:25 Fall Risk Fall in past 12 months (25 points). No secondary diagnosis (0 pts). IV access ed1 (20 points). Ambulatory Aid- Crutches/Cane/Walker (15 pts). Gait- Weak (10 pts.). Mental Status- Oriented to own ability (0 pts). Total Kelly Fall Scale indicates High Risk Score (45 or more points). Fall prevention measures have been instituted. Side Rails Up X 2 Frequent Obs/Assessments Occuring Family Present and informed to notify staff if the need to leave the bedside As available patient and family educated on Fall Prevention Program and Strategies. Assessment: 00:25 General: Appears uncomfortable, Behavior is calm, cooperative. Pain: Complains of pain ed1 in top of head and forehead Pain does not radiate. Pain currently is 10 out of 10 on a pain scale. Quality of pain is described as throbbing, Pain began 1 day ago. Is continuous. Neuro: Level of Consciousness is awake, alert, obeys commands, Oriented to person, place, time, situation, [employer] are equal bilaterally Moves all extremities. Full function Gait is unsteady, Speech is normal, Facial symmetry appears normal, Pupils are PERRLA, Intact Reports dizziness, headache in entire parietal area, frontal area, occipital area. Cardiovascular: Denies chest pain, Heart tones S1 S2 present. Respiratory: Airway is patent Respiratory effort is even, unlabored, Respiratory pattern is regular, symmetrical, Breath sounds are clear bilaterally. GI: Patient currently denies diarrhea, nausea, vomiting. : No signs and/or symptoms were reported regarding the genitourinary system. EENT: Oral mucosa is moist. Derm: Skin is intact, is healthy with good turgor, Skin is dry, Skin is normal, Skin temperature is warm. Musculoskeletal: Circulation, motion, and sensation intact. 01:00 Reassessment: Patient appears in no apparent distress at this time. No changes from ed1 previously documented assessment. Patient and/or family updated on plan of care and expected duration. Pain level reassessed. Patient is alert, oriented x 3, equal unlabored respirations, skin warm/dry/pink. Patient states symptoms have not improved. Vital Signs: 00:11 BP 162 / 74; Pulse 82; Resp 18; Temp 98.6(O); Pulse Ox 98% on R/A; Weight 96.16 kg; lp1 Height 6 ft. 1 in. (185.42 cm); Pain 10/10; 01:00 BP 139 / 90; Pulse 73; Resp 16; Pulse Ox 99% on R/A; Pain 10/10; ed1 00:11 Body Mass Index 27.97 (96.16 kg, 185.42 cm) lp1 Benavides Coma Score: 01:04 Eye Response: spontaneous(4). Verbal Response: oriented(5). Motor Response: obeys rn commands(6). Total: 15. ED Course: 12/13 23:50 Patient arrived in ED. es 23:51 Maximus Perrin MD is Private Physician. es 23:52 Hallie Torres RN is Primary Nurse. ed1 23:53 Buzz Rm MD is Attending Physician. rn 12/14 00:11 Triage completed. lp1 00:11 Arm band placed on. lp1 00:20 Patient has correct armband on for positive identification. Placed in gown. Bed in low lp1 position. satellite project site monitor on. Pulse ox on. NIBP on. 00:25 Initial lab(s) drawn, by me, sent to lab. T\T\S collected, blood band applied to patient. ed1 Inserted saline lock: 20 gauge in right forearm, using aseptic technique. Blood collected. 00:46 CT Head Brain wo Cont In Process Unspecified. EDMS 00:47 CT completed. Patient tolerated procedure well. Patient moved to CT via stretcher. Patient moved back from CT. 01:05 Maximus Perrin MD is Hospitalizing Provider. rn 02:01 No provider procedures requiring assistance completed. Patient admitted, IV remains in ed1 place. intact, No redness/swelling at site. Administered Medications: 01:08 Drug: NS 0.9% 500 ml Route: IV; Rate: bolus; Site: right forearm; ed1 02:02 Follow up: IV Status: Completed infusion; IV Intake: 500ml ed1 Point of Care Testing: Blood Glucose: 00:20 Blood Glucose: 141 mg/dL; lp1 Ranges: Intake: 02:02 IV: 500ml; Total: 500ml. ed1 Outcome: 01:06 Decision to Hospitalize by Provider. rn 02:01 Admitted to Med/surg accompanied by tech, family with patient, via wheelchair, room ed1 217, with chart, Report called to Maria C Puga RN 02:01 Condition: stable 02:01 Discharge instructions given to patient, family, Instructed on the need for admit, Demonstrated understanding of instructions. 02:03 Patient left the ED. ed1 Signatures: Dispatcher [employer] Rufina Lambert Ervin eh Nieto, Roman, MD MD rn Hallie Torres RN RN ed1 Rosana Castellanos RN RN lp1
--- NOTE | 2018-12-14 01:08 | EDPHYS ---
Physician Documentation [facility] Name: Naga Castillo Age: 68 yrs Sex: Male : 1950 Arrival Date: 12/13/2018 Time: 23:50 Bed 6 Private MD: Maximus Perrin F ED Physician Buzz Rm HPI: 12/14 00:05 This 68 yrs old Black Male presents to ER via Unassigned with complaints of Headache, rn Dizziness. 00:05 The patient complains of pain to the top of head. The patient describes the headache as rn aching. Onset: The symptoms/episode began/occurred this morning. Associated signs and symptoms: Pertinent positives: dizziness, Pertinent negatives: altered mental status, fever, neck stiffness, rash, vision changes, vision loss, weakness, vertigo. Severity of symptoms: At its worst the pain was mild, in the emergency department the pain is unchanged. The patient has not experienced similar symptoms in the past. REports this morning began with headache, assoc with dizziness and generalized weakness but no focal weakness or new neurological symptoms. Reports decreased appetite and chronic diarrhea, + hx of anemia and on iron supplementation.. Historical: - Allergies: 00:18 Anesthesia; lp1 00:18 [place]; lp1 00:18 Sulfa (Sulfonamide Antibiotics); lp1 - Home Meds: 00:18 hydralazine 25 mg Oral tab 3 tab three times a day [Active]; calcitriol 0.25 mcg oral lp1 cap 2 caps once daily [Active]; carvedilol 25 mg oral tab 1 tab 2 times per day [Active]; finasteride 5 mg oral tab 1 tab once daily [Active]; amlodipine 10 mg tab 1 tab once daily [Active]; rosuvastatin 40 mg oral tab 1 tab once daily [Active]; furosemide 40 mg Oral tab 1 tab once daily [Active]; - PMHx: 00:18 CVA; Diabetes - NIDDM; Hypertension; kidney disease; Myocardial infarction; lp1 - PSHx: 00:18 triple bypass; bilateral hip surgery; Fistula- L arm; lp1 - Immunization history:: Adult Immunizations up to date, Flu vaccine is not up to date. - Family history:: not pertinent. - Social history:: Smoking status: Patient/guardian denies using tobacco. - Ebola Screening: : No symptoms or risks identified at this time. - Hospitalizations: : No recent hospitalization is reported. ROS: 00:05 Constitutional: Negative for fever, chills, and weight loss, Eyes: Negative for injury, rn pain, redness, and discharge, Neck: Negative for injury, pain, and swelling, Cardiovascular: Negative for chest pain, palpitations, and edema, Respiratory: Negative for shortness of breath, cough, wheezing, and pleuritic chest pain, Abdomen/GI: Negative for abdominal pain, vomiting, and constipation, MS/Extremity: Negative for injury and deformity, Skin: Negative for injury, rash, and discoloration, Neuro: Negative for numbness, tingling, and seizure. Exam: 00:05 Constitutional: This is a well developed, well nourished patient who is awake, alert, rn and in no acute distress. Head/Face: Normocephalic, atraumatic. Eyes: Pupils equal round and reactive to light, extra-ocular motions intact. Lids and lashes normal. Conjunctiva and sclera are non-icteric and not injected. Cornea within normal limits. Periorbital areas with no swelling, redness, or edema. Neck: Trachea midline, no thyromegaly or masses palpated, and no cervical lymphadenopathy. Supple, full range of motion without nuchal rigidity, or vertebral point tenderness. No Meningismus. Cardiovascular: Regular rate and rhythm with a normal S1 and S2. No pulse deficits. Respiratory: Lungs have equal breath sounds bilaterally, clear to auscultation. No increased work of breathing, no retractions or nasal flaring. Abdomen/GI: soft, non-tender Skin: Warm, dry MS/ Extremity: Pulses equal, no cyanosis. Neurovascular intact. Full, normal range of motion. Equal circumference. Neuro: Awake and alert, GCS 15, oriented to person, place, time, and situation. Cranial nerves II-XII grossly intact. Motor strength 5/5 in all extremities. Sensory grossly intact. Cerebellar exam normal. Vital Signs: 00:11 BP 162 / 74; Pulse 82; Resp 18; Temp 98.6(O); Pulse Ox 98% on R/A; Weight 96.16 kg; lp1 Height 6 ft. 1 in. (185.42 cm); Pain 10/10; 01:00 BP 139 / 90; Pulse 73; Resp 16; Pulse Ox 99% on R/A; Pain 10/10; ed1 00:11 Body Mass Index 27.97 (96.16 kg, 185.42 cm) lp1 Giovani Coma Score: 01:04 Eye Response: spontaneous(4). Verbal Response: oriented(5). Motor Response: obeys rn commands(6). Total: 15. MDM: 12/13 23:53 Patient medically screened. rn 12/14 01:04 Differential diagnosis: hypertensive headache, hyponatremia, migraine, tension rn headache, uremia, vasomotor headache. Data reviewed: vital signs, nurses notes, lab test result(s), EKG, radiologic studies, CT scan, and as a result, I will admit patient. Counseling: I had a detailed discussion with the patient and/or guardian regarding: the historical points, exam findings, and any diagnostic results supporting the discharge/admit diagnosis, lab results, radiology results, the need for further work-up and treatment in the hospital. Response to treatment: the patient's symptoms have mildly improved after treatment, and as a result, I will admit patient. Admission orders: after a detailed discussion of the patient's condition and case, the admit orders are written by me. 12/14 00:02 Order name: Basic Metabolic Panel; Complete Time: : rn 12/14 00:02 Order name: CBC with Diff rn 12/14 00:02 Order name: Magnesium; Complete Time: : rn 12/14 00:02 Order name: Protime (+inr); Complete Time: : rn 12/14 00:02 Order name: Ptt, Activated; Complete Time: : rn 12/14 00:02 Order name: Troponin (emerg Dept Use Only); Complete Time: : rn 12/14 00:02 Order name: CT Head Brain wo Cont rn 12/14 00:02 Order name: EKG; Complete Time: 00:11 rn 12/14 00:02 Order name: Cardiac monitoring; Complete Time: rn 12/14 00:02 Order name: EKG - Nurse/Tech; Complete Time: : rn 12/14 00:03 Order name: Type And Screen rn 12/14 00:04 Order name: LFT's; Complete Time: : rn 12/14 00:04 Order name: Lipase; Complete Time: : rn 12/14 00:02 Order name: IV Saline Lock; Complete Time: : rn 12/14 00:02 Order name: Labs collected and sent; Complete Time: rn 12/14 00:02 Order name: NPO; Complete Time: rn 12/14 00:02 Order name: O2 Per Protocol; Complete Time: : rn 12/14 00:02 Order name: O2 Sat Monitoring; Complete Time: rn Administered Medications: 01:08 Drug: NS 0.9% 500 ml Route: IV; Rate: bolus; Site: right forearm; ed1 02:02 Follow up: IV Status: Completed infusion; IV Intake: 500ml ed1 Point of Care Testing: Blood Glucose: 00:20 Blood Glucose: 141 mg/dL; lp1 Ranges: Critical Glucose Levels:Adult <50 mg/dl or >400 mg/dl <40 mg/dl or >180 mg/dl Disposition: 12/14/18 01:06 Hospitalization ordered by Maximus Perrin for Observation. Preliminary diagnosis are Dehydration, Headache, Dizziness and giddiness, Acidosis. - Bed requested for Telemetry/MedSurg (observation). - Status is Observation. ed1 - Condition is Stable. - Problem is new. - Symptoms have improved. UTI on Admission? No Signatures: Dispatcher [employer] EDMS Buzz Rm MD MD rn Riggs, Erika, RN RN ed1 Rosana Castellanos RN RN lp1 Lizette Chavez RN RN cg Corrections: (The following items were deleted from the chart) 19 01:06 Hospitalization Ordered by Maximus Perrin MD for Observation. Preliminary cg diagnosis is Dehydration; Headache; Dizziness and giddiness; Acidosis. Bed requested for Telemetry/MedSurg (observation). Status is Observation. Condition is Stable. Problem is new. Symptoms have improved. UTI on Admission? No. rn 02:03 01:19 12/14/2018 01:06 Hospitalization Ordered by Maximus Perrin MD for Observation. ed1 Preliminary diagnosis is Dehydration; Headache; Dizziness and giddiness; Acidosis. Bed requested for Telemetry/MedSurg (observation). Status is Observation. Condition is Stable. Problem is new. Symptoms have improved. UTI on Admission? No. cg
[2018-12-14] MEDS ORDERED: NA CHLORIDE 0.9% 500 ML ONE (01:16)
[2018-12-14] MEDS ORDERED: ONDANSETRON 4 MG/2 ML VIAL IV PRN (01:51)
[2018-12-14 02:26] VITALS: BMI 26.8
[2018-12-14] MEDS: ACETAMINOPHEN 500 MG TAB PO PRN ×2 (03:06→21:19)
[2018-12-14] MEDS: NA CHLORIDE 0.9% 1,000 ML IV SCH ×3 (03:07→11:40)
--- NOTE | 2018-12-14 05:48 | EKG ---
Test Date: 2018-12-14 Test Time: 00:19:51 Addresser: ERICK MEASUREMENT RESULTS: Intervals: Rate: 75 WI: 202 QRSD: 132 QT: 462 QTc: 515 [place]: P: 68 WI: 202 QRS: 10 T: 143 INTERPRETIVE STATEMENTS: Normal sinus rhythm Nonspecific intraventricular block T wave abnormality, consider inferolateral ischemia Abnormal ECG Compared to ECG 03/16/2018 20:51:46 T-wave abnormality now present Ventricular premature complex(es) no longer present ST (T wave) deviation no longer present Prolonged QT interval no longer present Electronically Signed On 12-14-18 05:47:50 SOFTWARE ENGINEER ADVISOR by Finn Lewis
--- NOTE | 2018-12-14 08:47 | RAD REPORT ---
EXAM DESCRIPTION: CT - Head Brain Wo Cont - 12/14/2018 2:25 am CLINICAL HISTORY: Headache COMPARISON: 2014 TECHNIQUE: Computed axial tomography of the head was obtained. IV contrast was not requested. All CT scans are performed using dose optimization technique as appropriate and may include automated exposure control or mA/KV adjustment according to patient size. FINDINGS: An intracranial bleed is not seen . The ventricles are normal in caliber. No extra-axial fluid collection is noted. Cerebral atrophy is noted. Fluid within the sinuses/ mastoids is not seen. Mild chronic right maxillary sinusitis is present IMPRESSION: No acute intracranial abnormality is seen. If patient's symptoms persist MRI of the bra in would be recommended.
[2018-12-14] MEDS: AMLODIPINE 10 MG TAB PO SCH (09:44)
[2018-12-14] MEDS: CARVEDILOL 25 MG TAB PO SCH ×2 (09:44→21:13)
[2018-12-14] MEDS: CALCITROL 0.25 MCG CAP PO SCH (09:44)
[2018-12-14] MEDS: HYDRALAZINE HCL 25 MG TABLET PO SCH ×3 (09:44→21:13)
[2018-12-14] MEDS: FINASTERIDE 5 MG TAB PO SCH (09:44)
[2018-12-14] MEDS ORDERED: GLUCAGON 1 MG/VIAL IM PRN (11:37)
[2018-12-14] MEDS ORDERED: D50W 25 GM/50 ML SYRINGE IV PRN (11:37)
--- NOTE | 2018-12-14 13:56 | P.CNS ---
Date of Consult: 12/14/18 Reason for Consult: CKD IV Chief Complaint: Dizziness and headache History of Present Illness: A 68-year-old man with PMhx of of CKD V, CAD S/P CABG in 2003, DM , CVA and HTN , urethral stricture; the pt presented for dizziness no chest pain palpitation, nausea or vomiting failed lt lower arm AVF BP on the high side , head Ct :-ve pt started on NS 125ml/hr received ~1liter so far Allergies milk Allergy (Verified 10/18/18 11:38) Itching strawberry Adverse Reaction (Verified 10/18/18 11:38) Anaphylaxis Sulfa (Sulfonamide Antibiotics) Adverse Reaction (Verified 10/18/18 11:38) Anaphylaxis sulfamethoxazole [From Bactrim] Adverse Reaction (Verified 10/18/18 11:38) Itching trimethoprim [From Bactrim] Adverse Reaction (Verified 10/18/18 11:38) Itching Home Medications: Finasteride [Proscar*] 5 mg PO DAILY 06/26/15 Rosuvastatin Calcium [Crestor] 40 mg PO DAILY 06/26/15 Furosemide 40 mg PO DAILY 07/09/15 Amlodipine [Norvasc] 10 mg PO DAILY #30 tab 04/09/17 Calcitrol [Rocaltrol*] 2 cap PO DAILY 04/09/17 Carvedilol [Coreg*] 25 mg PO BID 04/09/17 Hydralazine [Apresoline] 25 mg PO TID #90 tab 04/09/17 Epoetin [Procrit] 4,000 unit SQ SEECOM 03/17/18 - Past Medical/Surgical History Diabetic: Yes -: Diabetes- NIDDM -: Hypertension -: Coronary artery disease -: hyperlipidemia -: Cerebral vascular accident -: anemia -: Aortic valve repair -: DE -: Kidney disease -: Cholecystectomy -: CABG -: aortic valve replacement -: Bilateral hip replacement -: Aortic stent placement - Family History Father Medical History: Heart disease Mother Medical History: Diabetes, Cancer Sister Medical History: Diabetes, Cancer Brother Medical History: Diabetes, Cancer - Social History Smoking Status: Never smoker Alcohol use: No CD- Drugs: No Caffeine use: Yes Place of Residence: Home Physical Examination Temp Pulse Resp BP Pulse Ox 97.5 F 80 20 163/82 H 97 12/14/18 08:00 12/14/18 08:00 12/14/18 08:00 12/14/18 08:00 12/14/18 08:00 General: Oriented x3, Mild distress HEENT: Atraumatic Neck: Supple, Without JVD or thyroid abnormality Respiratory: Clear to auscultation bilaterally, Normal air movement Cardiovascular: Regular rate/rhythm, Normal S1 S2, Edema Laboratory Data (last 24 hrs) 12/14/18 00:16: PT 12.6 H, INR 1.07, APTT 36.7 12/14/18 00:16: WBC 5.0, Hgb 9.0 L, Hct 28.4 L, Plt Count 121 L 12/14/18 00:16: Sodium 147 H, Potassium 4.6, BUN 67 H, Creatinine 4.83 H, Glucose 130 H, Magnesium 2.1, Total Bilirubin 0.5, AST 16, ALT 23, Alkaline Phosphatase 55, Lipase 54 L - Problems (1) Dizziness Onset Date: 12/15/18 Current Visit: Yes Status: Acute (2) Dizziness Current Visit: Yes Status: Acute Conclusions/Impression: A 68-year-old man with PMhx of of CKD V, CAD S/P CABG in 2003, DM , CVA and HTN , urethral stricture; the pt presented for dizziness no chest pain palpitation, nausea or vomiting failed lt lower arm AVF BP on the high side , head Ct :-ve pt started on NS 125ml/hr received ~1liter so far CKD V Cr stable failed Lt AVF renal diet renal dose meds Anemia on epogen MB on calcitriol Acidosis will hold on na bicarb for now pt with LE edema dizziness Bp on the high side , pt with LE edema + 2 Na 147 , will change fluid to 1/2 NS will get CXR
[2018-12-14] MEDS: NACHLORIDE 0.45% 1,000 ML IV SCH (14:31)
--- NOTE | 2018-12-14 14:49 | RAD REPORT ---
EXAM DESCRIPTION: Reginald Single View12/14/2018 2:37 pm CLINICAL HISTORY: Chest pain COMPARISON: 2017 FINDINGS: The lungs appear clear of acute infiltrate. The heart is moderately enlarged. Postsurgical changes involve the chest. IMPRESSION: No acute abnormalities displayed
[2018-12-14] MEDS: INSULIN -REGULAR HUMAN 50 UNIT/0.5 ML ML SQ SCH ×2 (16:30→21:00)
[2018-12-14] MEDS ORDERED: ROSUVASTATIN 10 MG TAB PO SCH (21:00)
--- NOTE | 2018-12-14 22:33 | HP ---
Date of Admission: 12/14/2018 History Of Present Illness: The patient is a 68-year-old male who came to emergency room complaining of headache and dizziness that started during the day of his presentation to the emergency room. He also had one-time nausea and vomiting. The patient has multiple medical problems, and he was admitt ed for 23-hour observation. The patient describes his headache as all over. No specific site. He d id not have abdominal pain. However, he threw up one time. The patient also was found to be on the volume depleted side that led to his admission for observation. Review of Systems: Cardiovascular: No chest pain. No palpitation. No complaints. Respiratory: No complaints. Gastrointestinal: As mentioned above. Neurological: As above. Skeletomuscular: No complaints. Genitourinary: No complaints. Past Medical History: 1.Hypertension. 2.Chronic renal insufficiency. He follows up with Urology. 3.Coronary artery disease. 4.Hyperlipidemia. 5.Benign prostatic hypertrophy. 6.Type 2 diabetes. 7.History of CVA in the past. 8.The patient has had also bypass CABG surgery done. 9.He had bilateral hip surgery. Family History: Noncontributing. Medications: Include furosemide 40 mg p.o. daily, amlodipine 10 mg p.o. daily, Rocaltrol 0.25 mg p.o . daily, carvedilol 25 mg p.o. b.i.d., Procrit 4000 units, finasteride 5 mg daily, hydralazine 25 t.i .d., and Crestor 40 mg p.o. daily. Allergies: MILK, STRAWBERRY, AND SULFA. Social History: The patient, on his social history, denies smoking, alcohol, or drug abuse history. Physical Examination: Vital Signs: Blood pressure 160/80, pulse 80, and temperature 97.5. Heart: Regular rate and rhythm. Chest: Clear to auscultation. Abdomen: Soft, nontender. No hepatosplenomegaly. Bowel sounds normoactive. Extremities: No edema. No cyanosis. Peripheral pulses are felt. Neurological: Alert, oriented, nonfocal. Grossly intact. Room air pulse oximetry 98%. Diagnostic Data: EKG; normal sinus rhythm. Nonspecific interventricular block and nonspecific Q-wav e abnormality in the inferolateral leads. Laboratory Data: Head CT; no acute pathology. CBC; white cell count 5, hemoglobin 9, hematocrit 28. 4, and platelets 121. Sodium 147, BUN 67, creatinine 4.83. GFR 16. Troponin 0.05, 0.06, and 0.07. Assessment And Plan: 1.Headache with nausea and vomiting in a patient with significant medical problems including coronar y artery disease and now with increased troponin. We will admit the patient for observation, put him on telemetry, and ask Cardiology to see him. 2.Chronic renal insufficiency. The patient is following up with Dr. Joseph. We will monitor his elec trolytes and BUN and creatinine. 3.Slight evidence of volume depletion with hypernatremia. We will gently hydrate the patient. 4.We will monitor his blood sugar fingersticks and put him on regular insulin sliding scale. Look o vazquez for details. MFS/MODL Voice ID: [id number]
--- NOTE | 2018-12-15 03:18 | CON ---
Reason For Consult: Headache and dizziness. History Of Present Illness: Mr. Castillo is a gentleman, who has coronary heart disease with prior bypa ss surgery, mildly depressed ejection fraction, aortic valve disease with a transcatheter aortic valv e replacement several years ago, several years after his bypass surgery. Most recent echocardiograms reveal normal function of the prosthetic valve. He was seen in my office within the last month and seemed to be doing fine. When he came to the emergency room, he complained of dizziness and headache , it just started on the morning of the admission, it started after he took his medications. He was found to have a blood pressure of 162/74. Nephrology Service has seen him. He has chronic renal ins ufficiency. He is not on hemodialysis. It is stage 4. Creatinine is very close to 5, but he is not felt to have been uremic or suffering enough from renal insufficiency to initiate dialysis. Medications: Outpatient medications have been Crestor 40, Proscar, furosemide, Coreg 25 b.i.d., calc itriol, amlodipine 10, hydralazine 25 three times a day, and Procrit. Allergies: HE IS ALLERGIC TO MILK, STRAWBERRY, SULFA, ALL SULFONAMIDE ANTIBIOTICS. Physical Examination: Vital signs: 6 feet 1 inch, 203 pounds. HEENT: Unremarkable. Heart: Reveals no significant murmur, and this would be typical for a transcatheter aortic valve typ e replacement. Abdomen: Soft. Extremities: Trace edema. Laboratory Data: Reveals all of his troponins are just about the same at 0.05 to 0.7. He has a crea tinine of 4.83. BUN is 67. Hemoglobin is 9, hematocrit 28.4. Impression: The patient is probably having symptoms mostly from uremia or hypertension. He is getti ng fluids. He seems to be feeling better. I think he is probably pretty close to needing chronic he modialysis. The patient is very comfortable with that idea. He has been aware of the need for dialy sis at some point in his future for some time. There are not any cardiac interventions or tests that are indicated at this time. SH/MODL Voice ID: [id number] Report ID: [id number]
[2018-12-15 05:33] LABS: Absolute Lymphocytes (CBC) 1.2 K/uL (0.7-4.9); Absolute Monocytes 0.4 K/uL (0.1-1.3); Absolute Neutrophil 2.8 K/uL (1.8-8.0); Basophils % 0.9 % (0-1.3); Eosinophils % 6.3 % (0-4.4); Hematocrit 25.1 % (39.6-49.0); Lymphocytes % 24.7 % (15.3-44.8); MPV 8.1 fL (7.6-11.3); Monocytes % 8.5 % (3.3-12.3); RBC Red Blood Cell Count 2.83 M/uL (4.33-5.43)
[2018-12-15 05:44] LABS: Potassium 4.7 mmol/L (3.5-5.1)
[2018-12-15] MEDS: NACHLORIDE 0.45% 1,000 ML IV SCH (06:40)
[2018-12-15] MEDS: INSULIN -REGULAR HUMAN 50 UNIT/0.5 ML ML SQ SCH ×2 (07:30→11:30)
[2018-12-15 08:56] VITALS: BP 167/74; TEMP 97.6
[2018-12-15 09:52] VITALS: O2SAT 95
[2018-12-15] MEDS: CARVEDILOL 25 MG TAB PO SCH (10:10)
[2018-12-15] MEDS: AMLODIPINE 10 MG TAB PO SCH (10:10)
[2018-12-15] MEDS: FINASTERIDE 5 MG TAB PO SCH (10:10)
[2018-12-15] MEDS: HYDRALAZINE HCL 25 MG TABLET PO SCH ×2 (10:10→14:52)
[2018-12-15] MEDS: CALCITROL 0.25 MCG CAP PO SCH (10:10)
[2018-12-15] MEDS ORDERED: FUROSEMIDE 40 MG/4 ML VIAL IV ONE (11:53)
--- NOTE | 2018-12-15 12:05 | P.PN ---
Subjective Date of Service: 12/15/18 Chief Complaint: Dizziness and headache Subjective: Improving symptoms improved Will Dc IVF Lasix 40Mg X1 cleared for discharge from nephrology point of view Physical Examination - Vital Signs Temperature: 97.6 F Blood Pressure: 167/74 Pulse: 68 Respirations: 16 Pulse Ox (%): 95 - Physical Exam General: In no apparent distress, Oriented x3 HEENT: Atraumatic Neck: Supple, Without JVD or thyroid abnormality Respiratory: Clear to auscultation bilaterally, Normal air movement Cardiovascular: Regular rate/rhythm, Normal S1 S2, Edema Gastrointestinal: Normal bowel sounds, Soft and benign Assessment And Plan - Current Problems (Diagnosis) (1) Dizziness Onset Date: 12/15/18 Current Visit: Yes Status: Acute (2) Dizziness Current Visit: Yes Status: Acute - Plan A 68-year-old man with PMhx of of CKD V, CAD S/P CABG in 2003, DM , CVA and HTN , urethral stricture; the pt presented for dizziness no chest pain palpitation, nausea or vomiting failed lt lower arm AVF BP on the high side , head Ct :-ve pt started on NS 125ml/hr received ~1liter so far CKD V Cr stable failed Lt AVF renal diet renal dose meds Anemia on epogen MB on calcitriol Acidosis will hold on na bicarb for now pt with LE edema dizziness improved will dc IVF
--- NOTE | 2018-12-15 16:15 | EKG ---
Test Date: 2018-12-15 Test Time: 08:37:12 Medical Billing And Coding Instructor: JENNIFER MEASUREMENT RESULTS: Intervals: Rate: 71 W[place]: 186 QRSD: 134 QT: 450 QTc: 489 [place]: P: 50 W[place]: 186 QRS: 7 T: 192 INTERPRETIVE STATEMENTS: Normal sinus rhythm Nonspecific intraventricular block T wave abnormality, consider inferolateral ischemia Abnormal ECG Compared to ECG 12/14/2018 00:19:51 No significant changes Electronically Signed On 12-15-18 16:15:32 CATALYST OPERATOR by Finn Lewis
[2018-12-20] MEDS ORDERED: EPOETIN ALFA 4,000 UNIT/ML VIAL SQ SCH (09:00)
== END 2018-12-15 15:10 | disposition home or self-care (01) ==
LOC: ER 23:49 → ERHOLD 12-14 01:07 → 2ND 12-14 01:44
PROVIDERS: ADMIT Internal Medicine; ATTEND Internal Medicine
DX: R51 Headache (principal); R11.2 Nausea with vomiting, unspecified; E86.9 Volume depletion, unspecified; E87.0 Hyperosmolality and hypernatremia; I25.10 Atherosclerotic heart disease of native coronary artery without angina pectoris; I12.0 Hypertensive chronic kidney disease with stage 5 chronic kidney disease or end stage renal disease; E11.22 Type 2 diabetes mellitus with diabetic chronic kidney disease; N18.5 Chronic kidney disease, stage 5; N40.0 Benign prostatic hyperplasia without lower urinary tract symptoms; Z86.73 Personal history of transient ischemic attack (TIA), and cerebral infarction without residual deficits; Z95.1 Presence of aortocoronary bypass graft; Z88.2 Allergy status to sulfonamides
CPT/HCPCS: 36415 ×2; 70450; 71045; 80048 ×2; 80076; 82962 ×6; 83690; 83735; 84484 ×3; 85025 ×2; 85610; 85730; 86850; 86900; 86901; 93005 ×2; 96360; 99285; G0378 ×2; J1940; J7030 ×2

== ENCOUNTER 2019-05-25 07:57 | Day surgery (SDC) | payer OTHER ==
--- OUTSIDE RECORDS SUMMARY | 2019-05-25 08:00 | XMS REPORT | Clinical Summary ---
:1950 Author Organization [facility] Address [address] [place] [id number] Care Team Providers Name Role Phone Asked, No Pcp Primary Care Provider Unavailable Allergies Active Allergy Reactions Severity Noted Date Comments Sulfamethoxazole-Trimethoprim 04/19/2017 Milk 04/19/2017 Shellfish Derived 04/19/2017 Mead 04/19/2017 Medications Medication Sig Dispensed Refills Start Date End Date Status amLODIPine (NORVASC) 10 Take 10 mg by 1 01/13/2017 Active mg tablet mouth once daily. carvedilol (COREG) 25 MG Take 25 mg by 12 02/28/2017 Active tablet mouth [...] 04/19/2017 Overview: with a 31-mm Medtronic CoreValve. Encounters Date Type Specialty Care Team Description 04/26/2019 Multidisciplinary Visit Cardiology Stanislaw Arora S/P TAVR ( transcatheter aortic valve replacement) (Primary Dx); MD Pat Chronic systolic congestive heart failure (HCC) Mikel Emanuel MD 01/31/2019 Orders Only Cardiology Zahra Jimenez MA Aortic valve disorder (Primary Dx) 01/31/2019 Orders Only Cardiology Zahra Jimenez MA Aortic valve disorder (Primary Dx) after 05/24/2018 Family History Medical History Relation Name Comments Cancer Mother Hypertension Mother Relation Name Status Comments Father Mother Social History Tobacco Use Types Packs/Day Years Used Date Former Smoker 1 5 Smokeless Tobacco: Never Used Comments: quit 40yrs ago Alcohol Use Drinks/Week oz/Week Comments No Sex Assigned at Date Recorded Not on file Job Start Date Occupation Industry Not on file Not on file Not on file Travel History Travel Start Travel End No recent travel history available. Last Filed Vital Signs Vital Sign Reading Time Taken Blood Pressure 130/86 04/26/2019 12:52 PM CDT Pulse 61 04/26/2019 12:52 PM CDT Temperature - - Respiratory Rate 16 04/26/2019 12:52 PM CDT Oxygen Saturation - - Inhaled Oxygen Concentration - - Weight 96.2 kg (212 lb) 04/26/2019 12:52 PM CDT Height 185.4 cm (6' 1") 04/26/2019 12:52 PM CDT Body Mass Index 27.97 04/26/2019 12:52 PM CDT Plan of Treatment Health Maintenance Due Date Last Done Comments COLONOSCOPY SCREENING 1999 SHINGLES VACCINES (#1) 1999 65+ PNEUMOCOCCAL VACCINE (1 of 2 - PCV13) 2014 INFLUENZA VACCINE 06/14/2019 Procedures Procedure Name Priority Date/Time Associated Comments Diagnosis ECG 12-LEAD Routine 04/26/2019 12:52 S/P TAVR Results for this PM CDT (transcatheter procedure are in aortic valve the results replacement) section. ECHOCARDIOGRAM 2D Routine 04/26/2019 11:03 Aortic valve Results for this COMPLETE W MMODE AM CDT disorder procedure are in SPECTRAL COLOR DOPPLER the results (13686) section. after 05/24/2018 Results ECG 12 lead (04/26/2019 12:52 PM CDT) Ventricular rate 62 [facility] Atrial rate 62 [facility] AR interval 218 [facility] QRSD interval 138 [facility] QT interval 498 [facility] QTC interval 505 [facility] P axis 1 70 [facility] QRS axis 1 108 [facility] T wave axis 202 [facility] EKG impression Sinus rhythm with 1st degree AV block with fusion complexes- Rightward axis-Nonspecific intraventricular block-T wave abnormality, consider inferolateral ischemia-Abnormal ECG-In automated comparison wit [facility] h ECG of 26-APR-2017 12:04,-Significant changes have occurred-Electronically Signed By Chavo Wright ([id number]) on 2018 10:44:06 PM Specimen Narrative Performed At Performing Organization Address City/State/Zipcode Phone Number [facility] [address] [place] [address] Echocardiogram complete w contrast and 3D if needed (04/26/2019 11:03 AM CDT) Specimen Narrative Performed At [facility] Echocardiography Report Pat.Name:NAGA CASTILLO Pat.ID:[id number] .Date: 04/26/2019 Refer.MD:MIKEL EMANUEL MD Exam Time: 10:27:00 AM Study Type:Routine Echo Height:73inWeight: 212lb BSA: 2.21 m2 DOBAge:1950,68Y Sex: MALEBP:128/64 HR:62 bpm Sonogrphr: Cynthia Velez, RCS, RCCS, CCT Pat. Stat.:Outpatient[facility] TapeVol: [facility], Study Status:Final Echo Event ID:[id number] Order ID:[id number] Reason for Study:Aortic valve disorder [I35.9 (ICD-10-CM)] History / Clinical:Congestive Heart Failure, Diabetes, Hypertension, Valvular Heart Disease; Aortic Stenosis Procedures:2D Echo, Colorflow Doppler Race:B SUMMARY: Compared to 2017: LV function is worse the gradient across the PAV is higher and the AI is more severe FINDINGS: LV: LV size is severely enlarged. There is severe eccentric LV hypertrophy.LV EF is severely depressed. Estimated EF is 25-29%. RV: RV size is moderately enlarged. RV systolic function is moderatelydepressed. LA: LA volume is moderately to severely enlarged. RA: RA volume is mildly enlarged. AO: Aortic root diameter is normal. MADI: No pericardial effusion. AV: Transcatheter bioprosthetic aortic valve. Moderate paravalvularaortic regurgitation. Transcatheter AV Doppler velocityindex is 0.35 (normal >0.50). MV: Moderate thickening of mitral leaflets. Mild mitral annular calcification.Dilated annulus with poor coaptation. Mild tomoderate mitral regurgitation. PV: No structural PV abnormalities noted. Mild pulmonic regurgitation. TV: No structural TV abnormalities noted. Mild tricuspid regurgitation Forrest: LV relaxation is impaired. LV filling pressure is elevated. Other:Estimated PA systolic pressure is 50 mmHg, assuming a mean RAPof 10 mmHg. MEASUREMENTS: 2D Parasternal Long [place] LVOT 2.4 cmLA Ds5 cm LVIDd6.6 cmIndex3 cm/m Ao An2.8 cm LVIDs5.9 cmAo Rtd 3.3 cm Index1.5 cm/m LV%fs 11 % LV Lpav786.7 g(122-174) IVSd 1.2 cmLVM Rntfy715.9 g/m2 LVPWd1.1 cmRWT0.3 LA Volume LA Vol 115.1 dcPtyts53.1 ml/m DOPPLER AV For Flow/DARY AV pkVel 309.9 cm/s (100-170) AV AC/ET 0.4 AV mnVel 218.6 cm/Quentin TVI79 cm AV pkPG 38.4 mmHgAVpkAcRt 56284.1 cm/s2 AV Mean G 22.4 mmHgAV EuLy995.6 cm/s2 AV AC128 msec (83-118) AV Area1.4 cm2(3-5) AV ET361 msec LVOT For Flow LVOT Area3.8 cm2 LVOT SV106.9 ml CTJAppNym088.9 cm/sHR59.9 bpm LVOTpkPG 4.9 mmHgLVOT CO6.4 l/min LVOTmnPG 2.9 mmHgLVOT CI2.9 l/m/m2 LVOT TVI28.1 cm WALL MOTION: RESTING WALL MOTION: Basal Inferolateral, Mid Inferolateral chinchilla are akinetic.Basal Anterior, Basal Anteroseptal, Basal Inferoseptal, Basal Inferior, Basal Anterolateral, Mid Anterior, Mid Anteroseptal, Mid Inferoseptal, Mid Inferior, Mid Anterolateral, Apical Anterior, Apical Septal, Apical Inferior, Apical Lateral, Apical chinchilla are hypokinetic. Wall Index=2.1 Signed 04/28/2019 10:53 AM Brenna Chen M.D. Procedure Note Interface, Radiology Results In - 04/28/2019 10:54 AM CDT [facility] Echocardiography Report Pat.Name: NAGA CASTILLO Pat.ID: [id number] St.Date: 04/26/2019 Refer.MD: MIKEL EMANUEL MD Exam Time: 10:27:00 AM Study Type:Routine Echo Height: 73in Weight: 212lb BSA: 2.21 m2 Age: 11 1950,68Y Sex: MALE BP: 128/64 HR: 62 bpm Sonogrphr: Cynthia Velez, RCS, RCCS, CCT Pat. Stat.:Outpatient Room: [address] Vol: [facility], Study Status:Final Echo Event ID:[id number] Order ID: [id number] Reason for Study:Aortic valve disorder [I35.9 (ICD-10-CM)] History / Clinical:Congestive Heart Failure, Diabetes, Hypertension, Valvular Heart Disease; Aortic Stenosis Procedures:2D Echo, Colorflow Doppler Race: B SUMMARY: Compared to 2017: LV function is worse the gradient across the PAV is higher and the AI is more severe FINDINGS: LV: LV size is severely enlarged. There is severe eccentric LV hypertrophy. LV EF is severely depressed. Estimated EF is 25-29%. RV: RV size is moderately enlarged. RV systolic function is moderately depressed. LA: LA volume is moderately to severely enlarged. RA: RA volume is mildly enlarged. AO: Aortic root diameter is normal. MADI: No pericardial effusion. AV: Transcatheter bioprosthetic aortic valve. Moderate paravalvular aortic regurgitation. Transcatheter AV Doppler velocity index is 0.35 (normal >0.50). MV: Moderate thickening of mitral leaflets. Mild mitral annular calcification. Dilated annulus with poor coaptation. Mild to moderate mitral regurgitation. PV: No structural PV abnormalities noted. Mild pulmonic regurgitation. TV: No structural TV abnormalities noted. Mild tricuspid regurgitation Forrest: LV relaxation is impaired. LV filling pressure is elevated. Other: Estimated PA systolic pressure is 50 mmHg, assuming a mean RAP of 10 mmHg. MEASUREMENTS: 2D Parasternal Long [place] LVOT 2.4 cm LA Ds 5 cm LVIDd 6.6 cm Index 3 cm/m Ao An 2.8 cm LVIDs 5.9 cm Ao Rtd 3.3 cm Index 1.5 cm/m LV%fs 11 % LV Mass 355.7 g (122-174) IVSd 1.2 cm LVM Index 160.9 g/m2 LVPWd 1.1 cm RWT 0.3 LA Volume LA Vol 115.1 ml Index 52.1 ml/m DOPPLER AV For Flow/DARY AV pkVel 309.9 cm/s (100-170) AV AC/ET 0.4 AV mnVel 218.6 cm/s AV TVI 79 cm AV pkPG 38.4 mmHg AVpkAcRt 10455.1 cm/s2 AV Mean G 22.4 mmHg AV DeRt 857.6 cm/s2 AV AC 128 msec (83-118) AV Area 1.4 cm2 (3-5) AV ET 361 msec LVOT For Flow LVOT Area 3.8 cm2 LVOT SV 106.9 ml LVOTpkVel 110.9 cm/s HR 59.9 bpm LVOTpkPG 4.9 mmHg LVOT CO 6.4 l/min LVOTmnPG 2.9 mmHg LVOT CI 2.9 l/m/m2 LVOT TVI 28.1 cm WALL MOTION: RESTING WALL MOTION: Basal Inferolateral, Mid Inferolateral chinchilla are akinetic. Basal Anterior, Basal Anteroseptal, Basal Inferoseptal, Basal Inferior, Basal Anterolateral, Mid Anterior, Mid Anteroseptal, Mid Inferoseptal, Mid Inferior, Mid Anterolateral, Apical Anterior, Apical Septal, Apical Inferior, Apical Lateral, Apical chinchilla are hypokinetic. Wall Index=2.1 Signed 04/28/2019 10:53 AM Brenna Chen M.D. Performing Organization Address City/State/Zipcode Phone Number [facility] [address] [place] [address] after 05/24/2018 Advance Directives Patient has advance care planning documents on file. For more information, please contact:Richard Lundberg[address] [place] [address]
--- OUTSIDE RECORDS SUMMARY | 2019-05-25 08:01 | XMS REPORT ---
:1950 Author Organization [facility] Address [address] [place] [address] [address] [place] [address] Care Team Providers Name Role Phone Unavailable Unavailable Unavailable Problems This patient has no known problems. Allergies, Adverse Reactions, Alerts This patient has no known allergies or adverse reactions. Medications This patient has no known medications.
--- OUTSIDE RECORDS SUMMARY | 2019-05-25 08:01 | XMS REPORT | Continuity of Care Document ---
:1950 Author Organization [facility] Information [place] Care Team Providers Name Role Phone [facility] Information [facility]ware Unavailable Unavailable Problems Problem Status Onset Classification Date Comments Source Date Reported RECTAL POLYP Active 06/09/[address] RECTAL POLYP-D12.8 Active 05/24/20 [facility] 16 [facility] Prostate stricture Resolved 12/15/19 Problem 07/10/2016 [facility] 12 [facility] Stroke Resolved 10/09/20 Problem 07/10/2016 [facility] 11 [facility] Hip replacement Resolved 11/05/20 Problem 07/10/2016 [place] 08 [facility] Gallbladder & bile Resolved 05/02/20 Problem 07/10/2016 [facility] duct stone with 04 [facility], obstruction [facility] Triple bypass of Resolved 04/14/20 Problem 07/10/2016 [place] pancreas 04 [place],[facility] - Myocardial Resolved 04/13/20 Problem 07/10/2016 [place] infarction 04 [place],[facility] CHF - Congestive Active Problem 07/10/2016 [facility] heart failure [place],[facility] CVA - Active Problem 07/10/2016 [facility] Cerebrovascular [facility], accident [facility] DM - Diabetes Active Problem 07/10/2016 [facility] mellitus [facility] Dysarthria Active Problem 07/10/2016 [facility] Enlarged prostate Active Problem 07/10/2016 [place] HTN - Hypertension Active Problem 07/10/2016 [facility] Rectal polyp Active Problem 07/10/2016 [facility] Right sided Active Problem 07/10/2016 [facility] weakness [facility] Medications Medication Details Route Status Patient Ordering Order Source Instructions Provider Date Tylenol 650 mg, 2 tab, Inactive 07/07/ [facility] Route: PO, Drug 2015 Hospital [...] IV, Total Inactive [facility] (ANES) Volume: 1,000, 2015 Hospital Start date: 07/07/16 8:44:00 CDT, Stop [...] Start date: 07/07/16 8:18:00 CDTNotes: (Same as: John) MEDICATION WASTE Product Size: 4 mg Product [...] Krystal 0.9% IV IV, Start date: Active 2016 Hospital 07/06/16 14:11:00 CDT, Duration: 30 day, Stop date: 08/05/16 14:10:00 CDT, PRN Line Flush BD Normal Saline 10 mL, Route: No Longer [facility]rystal Flush IV, Drug Form: Active 2015 [facility] INJ, PRN, PRN Line Flush, Start date: 07/06/16 14:11:00 CDT, Duration: 30 day, Stop date: 08/05/16 14:10:00 CDTNotes: (Same as: BD Posiflush) lisinopril 20 mg 20 mg=1 tab, PO, Active [facility] oral tablet Daily, 0 2015 Hospital Refill(s) Cefoxitin 2 gm, Route: Inactive [place] IVPB, ONCALL, 2016 [facility] Dosing Weight 95.909, kg, Start date: 05/26/16 8:00:00 CDTNotes: (Same As: Mefoxin) MEDICATION WASTE Product Size: 2000 mg Product Wasted: ___ mg Co-Q10 PO, 0 Refill(s) Active [place] [facility] Fish Oil PO, 0 Refill(s) Active [place] 2016 [facility] NovoLog SUB-Q, Active [place] TID-Before 2015 [facility] Meals, 0 Refill(s) Levemir SUB-Q, 0 Active [facility] Refill(s) 2016 [facility] ferrous sulfate PO, 0 Refill(s) Active [place] [facility] [place] Amlodipine PO, Daily, 0 Active [facility] Refill(s) 2015 [facility] Furosemide Daily, 0 Active [facility] Refill(s) 2016 [place] Lisinopril PO, Daily, 0 Active [place] Refill(s) 2015 [facility] Allergies, Adverse Reactions, Alerts Substance Category Reaction Severity Reaction Status Date Comments Source type Reported Food Lactose Assertion Propensity Active [facility] Intolerance to adverse Hospital (Restricts reactions Milk/Milk to Products) substance Food Assertion Drug Active [facility] Strawberries allergy [facility] sulfa drugs Assertion Drug Active [facility] allergy [facility] Immunizations No Data Provided for This Section Results Order Name Results Value Reference Date Interpretation Comments Source Range BLOOD BANK Antibody Negative [facility] RESULTS Scrn (07/07/16 9:35 AM) 2015 [facility] BLOOD BANK ABO/Rh O POS [facility] RESULTS 2016 [facility] CHEM PANEL Glucose Lvl 76 70 - 99 [facility] 2015 [facility] ELECTROLYTES Potassium 5.4 3.5 - 5.1 [facility] Lvl 2015 [facility] ELECTROLYTES Sodium Lvl 142 135 - 145 [facility] 2015 [facility] HEMATOLOGY Hgb 9.4 14.0 - 18.0 [facility] 2015 [facility] HEMATOLOGY Hct 29.5 42.0 - 54.0 [facility] 2015 Hospital Pathology Reports No Data Provided for This Section Diagnostic Reports No Data Provided for This Section Consultation Notes No Data Provided for This Section Discharge Summaries No Data Provided for This Section History and Physicals No Data Provided for This Section Vital Signs Vital Sign Value Date Comments Source Respitory Rate 16 07/07/2016 [facility] Heart Rate 59 07/07/2016 [facility] Systolic (mm Hg) 157 07/07/2016 [facility] Diastolic (mm Hg) 71 07/07/2016 [facility] Heart Rate 58 07/07/2016 [facility] Respitory Rate 18 07/07/2016 [facility] Systolic (mm Hg) 158 07/07/2016 [facility] Diastolic (mm Hg) 82 07/07/2016 [facility] Systolic (mm Hg) 140 07/07/2016 [facility] Diastolic (mm Hg) 69 07/07/2016 [facility] Respitory Rate 12 07/07/2016 [facility] Heart Rate 75 07/07/2016 [facility] Height 185.42 cm 07/06/2016 [facility] Weight 95.455 07/06/2016 [facility] BMI Calculated 27.76 07/06/2016 [facility] Height 185.42 cm 05/24/2016 [facility] Weight 95.909 05/24/2016 [facility] BMI Calculated 27.9 05/24/2016 [facility] Encounters Location Location Encounter Encounter Reason Attending ADM DC Status Source Details Type Number For Provider Date Date Visit [facility] [id number] [facility] 05/26 05/26 [facility] Out[facility] [place] /2015 [facility] Surgery [id number] [place] 07/07 07/07 [facility] /2015 [facility] Procedures Procedure Code Date Perfomer Comments Source Echocardiogram [id number] 01/22/2014 [facility] Echocardiogram [id number] 01/22/2014 [facility] CT angiography [id number] 01/21/2014 [facility] Pulmonary function [id number] 01/21/2014 [facility] CT angiography [id number] 01/21/2014 [facility] Pulmonary function [id number] 01/21/2014 [facility] Bypass [id number] [facility] Gallbladder [id number] [facility] operation Hip replacement [id number] [facility] Bypass [id number] [facility] Cataract extraction, [id number] bilateral [facility] insertion of [facility] intraocular lens and trabeculectomy<sup>1 </sup> Gallbladder [id number] [facility] Hip [id number] bilateral [facility] replacement<sup>2</s Hospital up> Assessment and Plan No Data Provided for This Section Plan of Care No Data Provided for This Section Social History Social History Date Source Social History TypeResponse 07/06/2016 [facility] Substance Abuse Use: None. Previous Treatment: None. IV drug use: No. Drug use interferes with work/home: No. Ready to change: No. Household substance abuse concerns: No. Cessation Education Provided: Yes. Sexual Sexually active: Yes. History of sexual abuse: No. Employment/School Work/School description: retired. Alcohol Past Smoking Status Former smoker; Stopped at age: 25; Previous treatment: None; Ready to change: Yes; Concerns about tobacco use in household: No; Exposure to Tobacco Smoke None ; Other Tobacco Frequency quit 40 years ago; Cigarette Smoking Last 365 Days No; Reg Smoking Cessation Counseling No Social History TypeResponse 03/16/2014 [place] Substance Abuse Previous Treatment: None. IV drug use: No. Drug use interferes with work/home : No. Ready to change: No. Household substance abuse concerns: No. Cessation Education Provided: Yes. Sexual Sexually active: Yes. History of sexual abuse: No. Employment/School Work/School description: retired. Alcohol Never, Previous treatment: None. Smoking Status Former smoker; Previous treatment: None; Ready to change: Yes; Concerns about tobacco use in household: No; Exposure to Tobacco Smoke None; Other Tobacco Frequency quit 40 years ago; Cigarette Smoking L ast 365 Days No; Reg Smoking Cessation Counseling No Family History No Data Provided for This Section Advance Directives No Data Provided for This Section Functional Status No Data Provided for This Section
[2019-05-25 08:18] LABS: Absolute Lymphocytes (CBC) 0.8 K/uL (0.7-4.9); Basophils % 0.9 % (0-1.3); Eosinophils % 6.1 % (0-4.4); Hematocrit 33.7 % (39.6-49.0); Lymphocytes % 20.6 % (15.3-44.8); Monocytes % 8.9 % (3.3-12.3); RBC Red Blood Cell Count 3.77 M/uL (4.33-5.43)
[2019-05-25] MEDS ORDERED: CEFAZOLIN/SWI 1gm 1 GM/10 ML SYR ONE (08:27)
[2019-05-25] MEDS ORDERED: NA CHLORIDE 0.9% 500 ML ONE (08:27)
[2019-05-25 09:06] LABS: Potassium 4.2 mmol/L (3.5-5.1)
[2019-05-25] MEDS ORDERED: NS 0.9% VIAL 10 ML ONE (09:24)
[2019-05-25] MEDS ORDERED: LIDOCAINE 1% MPF 30 ML VIAL ONE (09:25)
[2019-05-25] MEDS ORDERED: NA CHLORIDE 0.9% 100 ML IV ONE (09:25)
[2019-05-25] MEDS: HEPARIN 5000 UNIT/ML 1 ML VIAL ONE ×2 (09:29→09:30)
[2019-05-25] MEDS ORDERED: PROPOFOL 200 MG/20 ML VIAL IV ONE ×2 (09:35→10:34)
[2019-05-25] MEDS ORDERED: LIDOCAINE 1% MPF 2 ML AMPULE ONE (09:36)
[2019-05-25 10:08] LABS: Anisocytosis 1+; Blood Morphology Comment NOTED (NOT SEEN); Burr Cells 2+; Platelet Estimate DECR; Poikilocytosis 2+; Urine White Blood Cell Casts OK
--- NOTE | 2019-05-25 10:52 | RAD REPORT ---
EXAM DESCRIPTION: RAD - Fluoroscopy <1 Hour - 05/25/2019 10:46 am CLINICAL HISTORY: Venous catheter insertion. TESSIO COMPARISON: No comparisons FINDINGS: Fluoroscopic imaging is submitted from placement of a venous catheter. Details of the pro cedure not available. Fluoroscopy time: 1 second.
--- NOTE | 2019-05-25 11:22 | RAD REPORT ---
EXAM DESCRIPTION: RAD - Chest Single View - 05/25/2019 11:16 am CLINICAL HISTORY: S P HEMO CATH PLACEMENT Chest pain. COMPARISON: Chest Pa And Lat (2 Views) dated 05/09/2019; Chest Single View dated 12/14/2018; Chest Sin gle View dated 04/08/2017; CHEST SINGLE VIEW dated 12/26/2015 FINDINGS: Portable technique limits examination quality. The lungs are grossly clear. The heart is normal in size. Right-sided venous catheter its tip in the SVC.No pneumothorax.
--- NOTE | 2019-05-25 12:10 | OP ---
Date of Procedure: 05/25/2019 Surgeon: Andrea Zapata MD Preoperative Diagnosis: Acute renal failure. Postoperative Diagnosis: Acute renal failure. Procedure: Placement of right internal jugular Tesio catheter. Interpretation of intraoperative flu oroscopy. Estimated Blood Loss: Minimal. Specimen: None. Findings: Normal anatomy. Anesthesia: MAC. Complications: None. Disposition: The patient tolerated the procedure in stable condition, taken to Recovery in good gene ral condition. Procedure In Detail: The patient was brought to the OR and placed in supine position. MAC anesthesi a was begun. The patient was prepped and draped in the usual sterile fashion. Lidocaine 1% infiltra edwin locally in the right neck. An 18-gauge needle was used to access the right IJ and then the guide wire passed, position confirmed with fluoroscopy. Counterincision made on the right anterior chest. Tunneling device was used to tunnel the catheter between the 2 wounds. Seldinger technique was used . Vein dilated and tip of the catheter was placed in the SVC under fluoroscopy. Catheter flushed wi th heparin and packed with heparin with good blood flow. 3-0 chromic used to approximate the subcuta neous tissue and 3-0 nylon used to secure the tube to the chest wall. Sterile dressing was applied. The patient was awakened and taken to Recovery in good general condition. Chest x-ray has been orde red. If negative, the patient will be discharged to home. Disposition: Home. Condition: Stable. Discharge Instructions: Resume home medications and diet. Activity as tolerated. No heavy lifting. Remove outer dressing in 2 days. Shower. Keep wound clean and dry. Follow up dialysis center. Gabriel ollow up in my office when catheter needs to be removed. Tylenol No.3 one tablet p.o. q.4 p.r.n. suma GILLIS/JACK Voice ID: [id number] Report ID: [id number]
[2019-05-25 12:22] VITALS: BP 118/58; TEMP 96.5; O2SAT 99
[2019-05-25] MEDS ORDERED: FENTANYL CITR 100 MCG/2 ML ONE (12:33)
--- NOTE | 2019-05-25 15:02 | EKG ---
Test Date: 2019-05-25 Test Time: 08:08:21 Podiatrist: CARI MEASUREMENT RESULTS: Intervals: Rate: 61 IN: 222 QRSD: 138 QT: 496 QTc: 499 [place]: P: 71 IN: 222 QRS: -20 T: 190 INTERPRETIVE STATEMENTS: Sinus rhythm with 1st degree AV block Nonspecific intraventricular block T wave abnormality, consider inferolateral ischemia Abnormal ECG Compared to ECG 12/15/2018 08:37:12 First degree AV block now present T-wave abnormality still present Possible ischemia still present Electronically Signed On 05-25-19 15:01:05 CDT by Finn Lewis
== END 2019-05-25 12:45 | disposition home or self-care (01) ==
LOC: OR 07:57
PROVIDERS: ATTEND Surgery
PROC: 02HV33Z Insertion of Infusion Device into Superior Vena Cava, Percutaneous Approach (ICD-10-PCS; principal; 2019-05-25 10:30)
DX: N17.9 Acute kidney failure, unspecified (principal); I10 Essential (primary) hypertension; Z79.899 Other long term (current) drug therapy
CPT/HCPCS: 36565; 93005; 85025; 80048; 36415; 82962; 71045; J2704; J1644 ×2; J2001; J0690; C1752; 76000; J3010